=== PATIENT | male | born 1955 | race Caucasian/White ===

== ENCOUNTER 2017-05-06 02:57 | Emergency (ER) | payer MEDICARE, OTHER ==
[~2017-05-06] VITALS: Ht 175.3 cm; Wt 95.3 kg
[2017-05-06 03:12] VITALS: BP 146/90
--- NOTE | 2017-05-06 03:21 | Emergency Room Report ---
History of Present Illness General Chief Complaint: Skin Rash/Abscess Source: Patient Present Illness HPI Is a 61-year-old male with multiple medical problem. He presents with chief complaint of bedbugs infestation. It appeared that he may have lifted his car. He said his car is infested with bedbugs. He tried everything over-the- counter without success. He came in here asking for me to get rid of bedbugs in his car. Denies any other complaint. Does have some itchiness. He did show me the bedbugs in a napkin. Allergies: Coded Allergies: STRAWBERRY (Verified Allergy, Unknown, 05/06/17) Patient History Past Medical History: see triage record, old chart reviewed Past Surgical History: other Pertinent Family History: none Social History: Denies: smoking Immunizations: other Reviewed Nursing Documentation: PMH: Agreed, PSxH: Agreed Nursing Documentation-PMH Past Medical History: No Stated History Review of Systems Eye: Denies: blurred vision, eye pain ENT: Denies: ear pain, nose congestion, throat swelling Respiratory: Denies: cough, shortness of breath Cardiovascular: Denies: chest pain, palpitations Gastrointestinal: Denies: abdominal pain, diarrhea, nausea, vomiting Musculoskeletal: Denies: back pain, joint pain Skin: Denies: rash Neurological: Denies: headache, numbness Endocrine: Denies: increased thirst, increased urine Hematologic/Lymphatic: Denies: easy bruising All Other Systems: negative except mentioned in HPI Physical Exam Vital Signs Date Time Temp Pulse Resp B/P Pulse Ox O2 Delivery O2 Flow Rate FiO2 05/06/17 03:03 98.1 70 16 146/90 99 Room Air vitals normal Sp02 EP Interpretation: reviewed, normal General Appearance: well appearing, no apparent distress, alert Head: normocephalic, atraumatic Eyes: bilateral eye EOMI, bilateral eye PERRL ENT: hearing grossly normal, normal pharynx Neck: full range of motion, supple, no meningismus Respiratory: chest non-tender, lungs clear, normal breath sounds Cardiovascular #1: regular rate, rhythm, no murmur Gastrointestinal: normal bowel sounds, non tender, no mass, no organomegaly, no bruit, non-distended Musculoskeletal: back normal, gait/station normal, normal range of motion Neurologic: alert, oriented x3 Psychiatric: mood/affect normal Skin: warm/dry, other - Patient with some excoriation to his left torso Medical Decision Making Diagnostic Impression: Primary Impression: Bed bug bite Qualified Codes: W57.XXXA - Bitten or stung by nonvenomous insect and other nonvenomous arthropods, initial encounter ER Course Patient With bedbugs. He appeared comfortable. Explained to patient that he may need to get an turner in or any bedbugs specialist. Nothing I can do for the environment in his car or at home. This is not the right place to go for his complaint. Patient was not happy with this. he left without his paperwork. Last Vital Signs Date Time Temp Pulse Resp B/P Pulse Ox O2 Delivery O2 Flow Rate FiO2 05/06/17 03:12 98.1 70 16 146/90 99 Room Air Status: unchanged Disposition: HOME, SELF-CARE Condition: Stable Additional Instructions: followup your Dr. in 7 days. Return if worse. See an turner in. PHOENIX ONEILL M.D. May 06, 2017 03:21
[2017-05-06 03:25] VITALS: BP 146/90
== END 2017-05-06 03:25 | disposition home or self-care (01) ==
LOC: EMR 03:09
DX: S20.362A Insect bite (nonvenomous) of left front wall of thorax, initial encounter (principal); W57.XXXA Bitten or stung by nonvenomous insect and other nonvenomous arthropods, initial encounter; Y93.9 Activity, unspecified; Y92.9 Unspecified place or not applicable; Z91.018 Allergy to other foods
CPT/HCPCS: 99282

== ENCOUNTER 2017-05-29 09:35 | Inpatient (IN) | payer MEDICARE, OTHER ==
[~2017-05-29] VITALS: Ht 175.3 cm; Wt 92.7 kg
[2017-05-29 09:48] VITALS: BP 132/76
[2017-05-29] MEDS ORDERED: Promethazine/Codeine 5ml UD ORAL ONE (10:00)
--- NOTE | 2017-05-29 10:05 | Emergency Room Report ---
History of Present Illness General Chief Complaint: Upper Respiratory Illness Source: Patient Present Illness HPI Patient presents with cough with green phlegm. He also has chest pain. He's had pneumonia in the past and this feels like that. He had night sweats 2 nights ago. The pain is "crushing" his chest. No meds taken for this. Constant and radiating to back. TAYLOR. Has not heard himself wheezing. The patient's also on antibiotics at this time because he was having dysuria. It's the medicines once a day. He's not sure what the medicine name is. He is having urgency and dysuria. This somewhat better at this time. Is history of congestive heart failure, HIV and diabetes. No rashes, extremity pain, headache, change vision, NVD, depression. Allergies: Coded Allergies: No Known Allergies (Unverified , 05/29/17) Patient History Past Medical History: see triage record Social History: Denies: smoking Social History Narrative at home Reviewed Nursing Documentation: PMH: Agreed, PSxH: Agreed Nursing Documentation-PMH Past Medical History: No History, Except For Hx Hypertension: Yes - High Cholesterol Hx Pacemaker: Yes - Left chest, May 2016 @ [facility] Hx Diabetes: Yes Review of Systems All Other Systems: negative except mentioned in HPI Physical Exam Vital Signs Date Time Temp Pulse Resp B/P Pulse Ox O2 Delivery O2 Flow Rate FiO2 05/29/17 09:39 97.7 73 16 127/79 97 Room Air Sp02 EP Interpretation: reviewed, normal General Appearance: well appearing, no apparent distress, GCS 15 Head: normocephalic, atraumatic Eyes: bilateral eye PERRL, bilateral eye normal inspection ENT: moist mucus membranes Neck: supple Respiratory: lungs clear, normal breath sounds Cardiovascular #1: regular rate, rhythm, no edema Cardiovascular #2: 2+ radial (R) Gastrointestinal: normal inspection, normal bowel sounds, non tender, no mass, non-distended Musculoskeletal: back normal, gait/station normal, normal range of motion Neurologic: alert, oriented x3, grossly normal Psychiatric: mood/affect normal Skin: normal inspection, warm/dry Medical Decision Making Diagnostic Impression: Primary Impression: Chest pain Qualified Codes: R07.9 - Chest pain, unspecified Additional Impressions: Acute bronchitis Qualified Codes: J20.9 - Acute bronchitis, unspecified CHF (congestive heart failure) Qualified Codes: I50.9 - Heart failure, unspecified HIV (human immunodeficiency virus infection) ER Course Patient presents with cough that is productive and night sweats. Differential includes pneumonia, bronchitis, acute myocardial infarction amongst others. There are no wheezes at this time. Evaluation will be with EKG, chest x-ray, blood cultures, lactic acid. The patient will be treated initially with Phenergan with codeine. This are comorbidities we will have a low threshold for possible admission to the hospital. In addition, chest pain is of concern. EKG paced. CXR without infiltrate or CHF. WBC low. BNP minimally elevated. Concern over immune suppression (potential) and patient covered with antibiotics due to purulent sputum. Needs admission to rule out ACS. With paced EKG, might hide ischemia. Also needs admission for treatment of lung infection Possible early pneumonia). Seen by Dr. Martinez. Admit telemetry Dr. Grimm (at request of Dr. Shaikh's recorded message). Laboratory Tests Test 05/29/17 10:25 05/29/17 11:48 White Blood Count 7.4 K/UL (4.8-10.8) Red Blood Count 5.08 M/UL (4.70-6.10) Hemoglobin 16.9 G/DL (14.2-18.0) Hematocrit 48.4 % (42.0-52.0) Mean Corpuscular Volume 95 FL (80-99) Mean Corpuscular Hemoglobin 33.2 PG (27.0-31.0) H Mean Corpuscular Hemoglobin Concent 34.8 G/DL (32.0-36.0) Red Cell Distribution Width 11.6 % (11.6-14.8) Platelet Count 126 K/UL (150-450) L Mean Platelet Volume 7.7 FL (6.5-10.1) Neutrophils (%) (Auto) 62.4 % (45.0-75.0) Lymphocytes (%) (Auto) 25.4 % (20.0-45.0) Monocytes (%) (Auto) 10.3 % (1.0-10.0) H Eosinophils (%) (Auto) 1.1 % (0.0-3.0) Basophils (%) (Auto) 0.8 % (0.0-2.0) Prothrombin Time 10.7 SEC (9.30-11.50) Prothrombin Time INR 1.0 (0.9-1.1) PTT 29 SEC (23-33) Sodium Level 135 mEQ/L (135-145) Potassium Level 3.9 mEQ/L (3.4-4.9) Chloride Level 99 mEQ/L (98-107) Carbon Dioxide Level 22 mEQ/L (20-30) Anion Gap 14 (5-15) Blood Urea Nitrogen 12 mg/dL (7-23) Creatinine 1.2 mg/dL (0.7-1.2) Estimate Glomerular Filtration Rate > 60 mL/min (>60) Glucose Level 166 mg/dL (74-106) H Lactic Acid Level 1.80 mmol/L (0.66-2.22) Calcium Level 9.9 mg/dL (8.6-10.2) Total Bilirubin 0.9 mg/dL (0.0-1.2) Aspartate Amino Transferase (AST) 79 U/L (5-40) H Alanine Aminotransferase (ALT) 156 U/L (3-41) H Alkaline Phosphatase 64 U/L (40-129) Total Creatine Kinase 126 U/L (38-174) Troponin I < 0.30 ng/mL (<=0.30) Pro-B-Type Natriuretic Peptide 188 pg/mL (0-125) H Total Protein 7.2 g/dL (6.6-8.7) Albumin 4.5 g/dL (3.5-5.2) Globulin 2.7 g/dL Albumin/Globulin Ratio 1.6 (1.0-2.7) Digoxin Level 0.4 ng/mL (0.5-2.0) L Urine Color Pale yellow Urine Appearance Clear Urine pH 7 (4.5-8.0) Urine Specific [place] 1.010 (1.005-1.035) Urine Protein Negative (NEGATIVE) Urine Glucose (UA) 4+ (NEGATIVE) H Urine Ketones Negative (NEGATIVE) Urine Occult Blood Negative (NEGATIVE) Urine Nitrite Negative (NEGATIVE) Urine Bilirubin Negative (NEGATIVE) Urine Urobilinogen Normal MG/DL (0.0-1.0) Urine Leukocyte Esterase Negative (NEGATIVE) EKG Diagnostic Results Rate: normal Rhythm: other - paced ST Segments: other ASA given to the pt in ED: Yes Rhythm Strip Diag. Results EP Interpretation: yes Rhythm: other - paced, av sequential, rate 67 Chest X-Ray Diagnostic Results Chest X-Ray Diagnostic Results : Chest X-Ray Ordered: Yes # of Views/Limited/Complete: 1 View Indication: Other - both with cough EP Interpretation: Yes Interpretation: no consolidation, no effusion, no pneumothorax Impression: Other Interpreting ER Provider: Electronic signature Nahum Wells MD Last Vital Signs Date Time Temp Pulse Resp B/P Pulse Ox O2 Delivery O2 Flow Rate FiO2 05/29/17 21:00 68 131/77 05/29/17 19:44 98.6 20 96 Room Air Status: improved Disposition: ADMITTED INPATIENT Condition: Serious Nahum Wells M.D. May 29, 2017 10:05
[2017-05-29 10:49] LABS: BASOPHILS % (AUTO) 0.8 % (0.0-2.0); EOSINOPHILS % (AUTO) 1.1 % (0.0-3.0); LYMPHOCYTES % (AUTO) 25.4 % (20.0-45.0); MEAN CORPUSCULAR HEMOGLOBIN 33.2 PG (27.0-31.0); MEAN CORPUSCULAR HGB CONC 34.8 G/DL (32.0-36.0); MEAN CORPUSCULAR VOLUME 95 FL (80-99); MEAN PLATELET VOLUME 7.7 FL (6.5-10.1); MONOCYTES % (AUTO) 10.3 % (1.0-10.0); NEUTROPHILS % (AUTO) 62.4 % (45.0-75.0); PLATELET COUNT 126 K/UL (150-450); RED BLOOD COUNT 5.08 M/UL (4.70-6.10); RED CELL DISTRIBUTION WIDTH 11.6 % (11.6-14.8); WHITE BLOOD COUNT 7.4 K/UL (4.8-10.8)
[2017-05-29 10:55] LABS: PROTHROMBIN TIME 10.7 SEC (9.30-11.50)
[2017-05-29 11:01] LABS: TROPONIN I < 0.30 ng/mL (<=0.30)
[2017-05-29 11:02] LABS: ALANINE AMINOTRANSFERASE 156 U/L (3-41); ALBUMIN/GLOBULIN RATIO 1.6 (1.0-2.7); ANION GAP 14 (5-15); ASPARTATE AMINO TRANSFERASE 79 U/L (5-40); CALCIUM 9.9 mg/dL (8.6-10.2); CARBON DIOXIDE 22 mEQ/L (20-30); CHLORIDE 99 mEQ/L (98-107); CREATININE 1.2 mg/dL (0.7-1.2); GLOMERULAR FILTRATION RATE > 60 mL/min (>60); HEMOLYSIS 15; POTASSIUM 3.9 mEQ/L (3.4-4.9); SODIUM 135 mEQ/L (135-145); TOTAL PROTEIN 7.2 g/dL (6.6-8.7)
[2017-05-29] MEDS ORDERED: cefTRIAXone 1 GM in NS 55 ML IVPB ONE (11:30)
[2017-05-29] MEDS ORDERED: DIGOXIN250 MCG ORAL (11:39)
[2017-05-29] MEDS ORDERED: LOSARTAN PO (11:39)
[2017-05-29] MEDS ORDERED: CARVEDILOL PO (11:39)
[2017-05-29] MEDS ORDERED: TIVICAY50 MG ORAL (11:40)
[2017-05-29] MEDS ORDERED: EDURANT25 MG PO (11:40)
[2017-05-29] MEDS ORDERED: FISH OIL CAP1000 MG ORAL (11:40)
[2017-05-29] MEDS ORDERED: EPIVIR150 MG ORAL (11:41)
[2017-05-29 11:59] LABS: APPEARANCE,URINE CLEAR; KETONES,URINE NEGATIVE (NEGATIVE); LEUKOCYTE ESTERASE ,URINE NEGATIVE (NEGATIVE); NITRITE,URINE NEGATIVE (NEGATIVE); PH,URINE 7 (4.5-8.0); PROTEIN,URINE NEGATIVE (NEGATIVE); UROBILINOGEN,URINE NORMAL MG/DL (0.0-1.0)
--- NOTE | 2017-05-29 12:09 | Diagnostic Imaging Report ---
Indication: Cough Comparison: 03/17/10 A single view chest radiograph was obtained. Findings: Cardio mediastinal silhouette is normal. There is a pacemaker in the left side. Lungs are clear. Some small osseous structures noted in the area of the left coracoclavicular ligament likely indicative of previous injury. Impression: No acute cardiopulmonary disease
[2017-05-29 13:48] VITALS: BP 111/71
--- NOTE | 2017-05-29 15:51 | Cardiac Electrophysiology PN ---
Subjective Subjective [id number]. HTN, CHF, SJ ICD, PNA, HIV Objective Last 24 Hour Vital Signs Date Time Temp Pulse Resp B/P Pulse Ox O2 Delivery O2 Flow Rate FiO2 05/29/17 13:48 97.7 79 15 111/71 99 Room Air 05/29/17 09:48 97.6 76 14 132/76 98 Room Air 05/29/17 09:47 73 16 Room Air 05/29/17 09:39 97.7 73 16 127/79 97 Room Air Laboratory Tests Test 05/29/17 10:25 05/29/17 11:48 White Blood Count 7.4 K/UL (4.8-10.8) Red Blood Count 5.08 M/UL (4.70-6.10) Hemoglobin 16.9 G/DL (14.2-18.0) Hematocrit 48.4 % (42.0-52.0) Mean Corpuscular Volume 95 FL (80-99) Mean Corpuscular Hemoglobin 33.2 PG (27.0-31.0) H Mean Corpuscular Hemoglobin Concent 34.8 G/DL (32.0-36.0) Red Cell Distribution Width 11.6 % (11.6-14.8) Platelet Count 126 K/UL (150-450) L Mean Platelet Volume 7.7 FL (6.5-10.1) Neutrophils (%) (Auto) 62.4 % (45.0-75.0) Lymphocytes (%) (Auto) 25.4 % (20.0-45.0) Monocytes (%) (Auto) 10.3 % (1.0-10.0) H Eosinophils (%) (Auto) 1.1 % (0.0-3.0) Basophils (%) (Auto) 0.8 % (0.0-2.0) Prothrombin Time 10.7 SEC (9.30-11.50) Prothromb Time International Ratio 1.0 (0.9-1.1) Activated Partial Thromboplast Time 29 SEC (23-33) Sodium Level 135 mEQ/L (135-145) Potassium Level 3.9 mEQ/L (3.4-4.9) Chloride Level 99 mEQ/L (98-107) Carbon Dioxide Level 22 mEQ/L (20-30) Anion Gap 14 (5-15) Blood Urea Nitrogen 12 mg/dL (7-23) Creatinine 1.2 mg/dL (0.7-1.2) Estimat Glomerular Filtration Rate > 60 mL/min (>60) Glucose Level 166 mg/dL (74-106) H Lactic Acid Level 1.80 mmol/L (0.66-2.22) Calcium Level 9.9 mg/dL (8.6-10.2) Total Bilirubin 0.9 mg/dL (0.0-1.2) Aspartate Amino Transf (AST/SGOT) 79 U/L (5-40) H Alanine Aminotransferase (ALT/SGPT) 156 U/L (3-41) H Alkaline Phosphatase 64 U/L (40-129) Total Creatine Kinase 126 U/L (38-174) Troponin I < 0.30 ng/mL (<=0.30) Pro-B-Type Natriuretic Peptide 188 pg/mL (0-125) H Total Protein 7.2 g/dL (6.6-8.7) Albumin 4.5 g/dL (3.5-5.2) Globulin 2.7 g/dL Albumin/Globulin Ratio 1.6 (1.0-2.7) Digoxin Level 0.4 ng/mL (0.5-2.0) L Urine Color Pale yellow Urine Appearance Clear Urine pH 7 (4.5-8.0) Urine Specific [place] 1.010 (1.005-1.035) Urine Protein Negative (NEGATIVE) Urine Glucose (UA) 4+ (NEGATIVE) H Urine Ketones Negative (NEGATIVE) Urine Occult Blood Negative (NEGATIVE) Urine Nitrite Negative (NEGATIVE) Urine Bilirubin Negative (NEGATIVE) Urine Urobilinogen Normal MG/DL (0.0-1.0) Urine Leukocyte Esterase Negative (NEGATIVE) MORIS BARRIGA May 29, 2017 15:51
[2017-05-29 16:28] VITALS: BP 116/74
[2017-05-29 16:50] VITALS: BP 140/68
--- NOTE | 2017-05-29 19:35 | History and Physical ---
History of Present Illness General Reason for Hospitalization: Upper Respiratory Illness Present Illness HPI This is a 62-yr-old male with a PMHx of HTN, cardiomyopathy s/p pacemaker placement, PNA, HIV diagnosed 35yrs ago on meds, presented to the ED with a 2 day chest pain non radiating. Pain is the same since is started 2 days ago. Also complains of cough with green phlegm. He had night sweats 2 nights ago. The patient's also on antibiotics at this time because he was having dysuria. He's not sure what the medicine name is. He is having urgency and dysuria. This somewhat better at this time. Allergies: Coded Allergies: No Known Allergies (Unverified , 05/29/17) Medication History Scheduled Digoxin* (Digoxin*), Unknown Dose ORAL DAILY, (Reported) Dolutegravir Sodium (Tivicay), Unknown Dose ORAL DAILY, (Reported) Fish Oil (Fish Oil 1,000 mg Capsule), Unknown Dose ORAL BID, (Reported) Lamivudine* (Epivir*), Unknown Dose ORAL DAILY, (Reported) Rilpivirine Hcl (Edurant), Unknown Dose PO DAILY, (Reported) [Carvedilol], Unknown Dose PO DAILY, (Reported) [Losartan], Unknown Dose PO DAILY, (Reported) Patient History History Provided By: Patient Healthcare decision maker Resuscitation status Full Code Advanced Directive on File Past Medical/Surgical History Past Medical/Surgical History: (1) HTN (hypertension) (2) Pacemaker (3) CHF (congestive heart failure) (4) Cardiomyopathy (5) PNA (pneumonia) (6) HIV (human immunodeficiency virus infection) Social History Social History: (1) Former cigarette smoker (2) No illicit drug use (3) No history of alcohol use Review of Systems All Other Systems: negative except mentioned in HPI Physical Exam General Appearance: no apparent distress, alert Lines, tubes and drains: peripheral HEENT: normocephalic, atraumatic Neck: non-tender, normal alignment, supple Respiratory/Chest: lungs clear, normal breath sounds, no respiratory distress Cardiovascular/Chest: normal rate, pacemaker/AICD Abdomen: soft, no organomegaly Extremities: non-tender, normal inspection, no calf tenderness, normal capillary refill Skin Exam: warm/dry Neurologic: no motor/sensory deficits, alert, oriented x 3, responsive, normal mood/affect Last 24 Hour Vital Signs Date Time Temp Pulse Resp B/P Pulse Ox O2 Delivery O2 Flow Rate FiO2 05/29/17 16:50 97.7 65 20 140/68 94 Room Air 05/29/17 16:30 97.6 82 16 116/74 99 Room Air 05/29/17 16:28 97.6 82 16 116/74 99 Room Air 05/29/17 13:48 97.7 79 15 111/71 99 Room Air 05/29/17 09:48 97.6 76 14 132/76 98 Room Air 05/29/17 09:47 73 16 Room Air 05/29/17 09:39 97.7 73 16 127/79 97 Room Air Laboratory Tests Test 05/29/17 10:25 05/29/17 11:48 White Blood Count 7.4 K/UL (4.8-10.8) Red Blood Count 5.08 M/UL (4.70-6.10) Hemoglobin 16.9 G/DL (14.2-18.0) Hematocrit 48.4 % (42.0-52.0) Mean Corpuscular Volume 95 FL (80-99) Mean Corpuscular Hemoglobin 33.2 PG (27.0-31.0) H Mean Corpuscular Hemoglobin Concent 34.8 G/DL (32.0-36.0) Red Cell Distribution Width 11.6 % (11.6-14.8) Platelet Count 126 K/UL (150-450) L Mean Platelet Volume 7.7 FL (6.5-10.1) Neutrophils (%) (Auto) 62.4 % (45.0-75.0) Lymphocytes (%) (Auto) 25.4 % (20.0-45.0) Monocytes (%) (Auto) 10.3 % (1.0-10.0) H Eosinophils (%) (Auto) 1.1 % (0.0-3.0) Basophils (%) (Auto) 0.8 % (0.0-2.0) Prothrombin Time 10.7 SEC (9.30-11.50) Prothromb Time International Ratio 1.0 (0.9-1.1) Activated Partial Thromboplast Time 29 SEC (23-33) Sodium Level 135 mEQ/L (135-145) Potassium Level 3.9 mEQ/L (3.4-4.9) Chloride Level 99 mEQ/L (98-107) Carbon Dioxide Level 22 mEQ/L (20-30) Anion Gap 14 (5-15) Blood Urea Nitrogen 12 mg/dL (7-23) Creatinine 1.2 mg/dL (0.7-1.2) Estimat Glomerular Filtration Rate > 60 mL/min (>60) Glucose Level 166 mg/dL (74-106) H Lactic Acid Level 1.80 mmol/L (0.66-2.22) Calcium Level 9.9 mg/dL (8.6-10.2) Total Bilirubin 0.9 mg/dL (0.0-1.2) Aspartate Amino Transf (AST/SGOT) 79 U/L (5-40) H Alanine Aminotransferase (ALT/SGPT) 156 U/L (3-41) H Alkaline Phosphatase 64 U/L (40-129) Total Creatine Kinase 126 U/L (38-174) Troponin I < 0.30 ng/mL (<=0.30) Pro-B-Type Natriuretic Peptide 188 pg/mL (0-125) H Total Protein 7.2 g/dL (6.6-8.7) Albumin 4.5 g/dL (3.5-5.2) Globulin 2.7 g/dL Albumin/Globulin Ratio 1.6 (1.0-2.7) Digoxin Level 0.4 ng/mL (0.5-2.0) L Urine Color Pale yellow Urine Appearance Clear Urine pH 7 (4.5-8.0) Urine Specific [place] 1.010 (1.005-1.035) Urine Protein Negative (NEGATIVE) Urine Glucose (UA) 4+ (NEGATIVE) H Urine Ketones Negative (NEGATIVE) Urine Occult Blood Negative (NEGATIVE) Urine Nitrite Negative (NEGATIVE) Urine Bilirubin Negative (NEGATIVE) Urine Urobilinogen Normal MG/DL (0.0-1.0) Urine Leukocyte Esterase Negative (NEGATIVE) Height (Feet): 5 Height (Inches): 9.00 Weight (Pounds): 210 Medications Current Medications Medications (Trade) Dose Ordered Sig/Nate Route PRN Reason Start Time Stop Time Status Last Admin Dose Admin Carvedilol (Coreg) 3.125 mg EVERY 12 HOURS ORAL 05/29/17 21:00 06/28/17 20:59 Dextrose (Dextrose 50%) STAT PRN IV Hypoglycemia 05/29/17 18:00 06/28/17 17:59 Digoxin (Lanoxin) 0.25 mg DAILY ORAL 05/30/17 09:00 06/29/17 08:59 Furosemide (Lasix) 40 mg DAILY IV 05/30/17 09:00 06/29/17 08:59 Insulin Aspart (NovoLOG) BEFORE MEALS AND HS SUBQ 05/29/17 21:00 06/28/17 20:59 Lisinopril (Zestril) 10 mg DAILY ORAL 05/30/17 09:00 06/29/17 08:59 Non-Formulary Medication (Non-Formulary Med) 1 ea DAILY ORAL 05/30/17 09:00 06/29/17 08:59 UNV Non-Formulary Medication (Non-Formulary Med) 1 ea DAILY ORAL 05/30/17 09:00 06/29/17 08:59 UNV Non-Formulary Medication (Non-Formulary Med) 1 ea DAILY ORAL 05/30/17 09:00 06/29/17 08:59 UNV Assessment/Plan Problem List: (1) Acute bronchitis ICD Codes: J20.9 - Acute bronchitis, unspecified SNOMED: 95085250 (2) CHF (congestive heart failure) ICD Codes: I50.9 - Heart failure, unspecified SNOMED: 64320692 (3) Cardiomyopathy ICD Codes: I42.9 - Cardiomyopathy, unspecified SNOMED: 12504245 (4) HTN (hypertension) ICD Codes: I10 - Essential (primary) hypertension SNOMED: 19473167 (5) Pacemaker ICD Codes: Z95.0 - Presence of cardiac pacemaker SNOMED: 016782106, 082026464 (6) HIV (human immunodeficiency virus infection) ICD Codes: B20 - Human immunodeficiency virus [HIV] disease SNOMED: 42306338 Assessment/Plan Obtain ID consult Cardio consult Monitor lytes, correct Pain management Neb treatment Cough suppressants Continue retroviral therapy AM labs Domi Monzon N.P. May 29, 2017 19:35
[2017-05-29 19:44] VITALS: BP 131/77
[2017-05-29] MEDS ORDERED: Acetaminophen 500mg (ES) tab ORAL PRN (19:45)
[2017-05-29] MEDS ORDERED: NEURONTIN300 MG ORAL (20:05)
[2017-05-29] MEDS ORDERED: DRONABINOL10 MG PO (20:12)
[2017-05-29] MEDS ORDERED: TAMSULOSIN HCL0.4 MG ORAL (20:12)
[2017-05-29] MEDS ORDERED: ASPIRIN81 M3 PO (20:13)
[2017-05-29] MEDS ORDERED: PROTONIX20 MG ORAL (20:13)
[2017-05-29] MEDS ORDERED: FINASTERIDE5 MG ORAL (20:13)
[2017-05-29] MEDS ORDERED: LOSARTAN POTASS25 M1 PO (20:13)
[2017-05-29] MEDS ORDERED: GLIMEPIRIDE4 MG ORAL (20:13)
[2017-05-29] MEDS: Tamsulosin 0.4mg cap ORAL SCH ×2 (21:00→21:09)
[2017-05-29] MEDS: NovoLOG Insulin Flexpen SUBQ SCH (21:10)
--- NOTE | 2017-05-29 21:45 | Consultation ---
DATE OF CONSULTATION: 05/29/2017 CARDIOLOGY CONSULTATION REFERRING PHYSICIAN: Nick Grimm M.D. REASON FOR CONSULTATION: Congestive heart failure and defibrillator management. HISTORY OF PRESENT ILLNESS: The patient is a 62-year-old gentleman with a history of hypertension, HIV, diabetes and congestive heart failure who had undergone a [employer] defibrillator implantation generator change about a year ago by . The patient presented to the emergency room with cough and green phlegm as well as chest pain. The patient has had pneumonia in the past and it feels like that. He also had night sweats two nights ago. The patient has already been on antibiotic for dysuria, but takes it one a day, but does not know the name of the medication. The patient also had dysuria and urgency. In the emergency room, the patient's blood pressure is 127/79, pulse 72, and respirations 16. At the time of my evaluation, the patient is still in the emergency room and has not been admitted to the floor yet. PAST MEDICAL HISTORY: 1. Hypertension. 2. Congestive heart failure. 3. History of [employer] defibrillator generator change in May 2016 at [facility]. 4. Cardiomyopathy. 5. HIV. 6. Diabetes. SOCIAL HISTORY: He denies smoking or drinking alcohol. He lives at home. REVIEW OF SYSTEMS: Review of systems was thoroughly performed and was negative other than what was mentioned in the history of present illness. FAMILY HISTORY: Noncontributory. PHYSICAL EXAMINATION: VITAL SIGNS: Blood pressure is 112/70, pulse is 79, respirations 16, and he is afebrile. HEAD AND NECK: No JVD. LUNGS: Clear. CARDIOVASCULAR: Regular S1, S2 with no gallop. The defibrillator is in the subclavian. ABDOMEN: Soft. EXTREMITIES: There is 1+ pitting edema. LABORATORY AND DIAGNOSTIC DATA: His EKG showed atrially sensed and biventricular paced rhythm with right bundle-branch block morphology. Labs show white count 7.4, hemoglobin 17, hematocrit 48.4, and platelet count 126,000. Sodium 135, potassium 3.9, BUN 12, and creatinine 1.2. BNP 188. Troponin is negative. D-dimer is 0.4. INR is 1. ASSESSMENT AND PLAN: 1. Congestive heart failure. We will repeat the echocardiogram for further evaluation. In the meantime, I will resume the patient's heart failure therapy including digoxin, Coreg, and losartan. Add low-dose Lasix to the medical regimen as well. 2. Status post [employer] biventricular defibrillator generator change. We will interrogate ICD for further evaluation. 3. Hypertension. Continue current heart failure therapy. 4. Pneumonia, cough, and phlegm. Antibiotic per Dr. Grimm. 5. Human immunodeficiency virus. Thank very much, Dr. Grimm, for allowing me to participate in the care of this patient. Please do not hesitate to contact me for any questions regarding my evaluation. Andres Martinez M.D. DR: TANYA JOB#: [id number] CC:
[2017-05-29] MEDS: TIVICAY 50 MG ORAL SCH (21:59)
[2017-05-29] MEDS: EDURANT 25 MG ORAL SCH (21:59)
[2017-05-29] MEDS: LAMIVUDINE 300 MG ORAL SCH (22:39)
[2017-05-29 23:48] VITALS: BP 103/61
[2017-05-30 04:00] VITALS: BP 131/77
[2017-05-30] MEDS: Glimepiride 4mg tab ORAL SCH (06:08)
[2017-05-30] MEDS: NovoLOG Insulin Flexpen SUBQ SCH ×4 (06:10→20:24)
--- NOTE | 2017-05-30 07:41 | Consultation ---
Consult Note Consult Note DATE OF CONSULTATION: 05/30/2017 PULMONARY CONSULTATION REFERRING PHYSICIAN: Nick Grimm M.D. REASON FOR CONSULTATION: Bronchitis HISTORY OF PRESENT ILLNESS: The patient is a 62-year-old gentleman with a history of hypertension, HIV, diabetes and congestive heart failure who had undergone a [employer] defibrillator implantation generator change about a year ago. The patient presented to the emergency room with cough and green phlegm as well as chest pain. The patient has had pneumonia in the past and it feels like that. He also had night sweats two nights ago. The patient has already been on antibiotic for dysuria, but takes it one a day, but does not know the name of the medication. The patient also had dysuria and urgency. In the emergency room, the patient's blood pressure is 127/79, pulse 72, and respirations 16. PAST MEDICAL HISTORY: 1. Hypertension. 2. Congestive heart failure. 3. History of [employer] defibrillator generator change in May 2016 at [facility]. 4. Cardiomyopathy. 5. HIV. 6. Diabetes. SOCIAL HISTORY: He denies smoking or drinking alcohol. He lives at home. REVIEW OF SYSTEMS: Review of systems was thoroughly performed and was negative other than what was mentioned in the history of present illness. FAMILY HISTORY: Noncontributory. PHYSICAL EXAMINATION: VITAL SIGNS: Blood pressure is 112/70, pulse is 79, respirations 16, and he is afebrile. HEAD AND NECK: No JVD. LUNGS: Clear. CARDIOVASCULAR: Regular S1, S2 with no gallop. The defibrillator is in the subclavian. ABDOMEN: Soft. EXTREMITIES: There is 1+ pitting edema. LABORATORY AND DIAGNOSTIC DATA: His EKG showed atrially sensed and biventricular paced rhythm with right bundle-branch block morphology. Labs show white count 7.4, hemoglobin 17, hematocrit 48.4, and platelet count 126,000. Sodium 135, potassium 3.9, BUN 12, and creatinine 1.2. BNP 188. Troponin is negative. D-dimer is 0.4. INR is 1. ASSESSMENT AND PLAN: 1. Congestive heart failure. Resume the patient's heart failure therapy including digoxin, Coreg, and losartan. Add low-dose Lasix to the medical regimen as well. 2. Status post [employer] Quang biventricular defibrillator generator change. 3. Hypertension. Continue current heart failure therapy. 4. Pneumonia vs bronchitis; agree with antibiotics 5. Human immunodeficiency virus. Thank very much, Dr. Grimm, for allowing me to participate in the care of this patient. Please do not hesitate to contact me for any questions regarding my evaluation. Solomon Mckeon M.D., MD May 30, 2017 07:41
[2017-05-30 08:00] VITALS: BP 136/82
[2017-05-30 08:17] LABS: BASOPHILS % (AUTO) 0.9 % (0.0-2.0); EOSINOPHILS % (AUTO) 3.4 % (0.0-3.0); LYMPHOCYTES % (AUTO) 31.8 % (20.0-45.0); MEAN CORPUSCULAR HEMOGLOBIN 33.8 PG (27.0-31.0); MEAN CORPUSCULAR VOLUME 97 FL (80-99); MEAN PLATELET VOLUME 7.6 FL (6.5-10.1); MONOCYTES % (AUTO) 12.4 % (1.0-10.0); NEUTROPHILS % (AUTO) 51.5 % (45.0-75.0); PLATELET COUNT 124 K/UL (150-450); RED CELL DISTRIBUTION WIDTH 11.9 % (11.6-14.8)
[2017-05-30 08:23] LABS: TROPONIN I < 0.30 ng/mL (<=0.30)
[2017-05-30 08:28] LABS: CALCIUM 9.7 mg/dL (8.6-10.2); CREATININE 1.3 mg/dL (0.7-1.2); GLOMERULAR FILTRATION RATE 55.6 mL/min (>60); POTASSIUM 3.6 mEQ/L (3.4-4.9)
[2017-05-30 08:35] LABS: THYROID STIMULATING HORMONE 1.91 uIU/mL (0.300-4.500)
[2017-05-30] MEDS: Aspirin Baby 81mg ORAL SCH (08:56)
[2017-05-30] MEDS: Losartan 25mg tab ORAL SCH (08:57)
[2017-05-30] MEDS: Dronabinol 2.5mg Cap ORAL SCH ×2 (08:58→17:05)
[2017-05-30] MEDS: Lisinopril 10mg tab ORAL SCH (08:59)
--- NOTE | 2017-05-30 11:34 | Nephrology Progress Note ---
Assessment/Plan Problem List: (1) HIV (human immunodeficiency virus infection) (2) Cardiomyopathy (3) HTN (hypertension) (4) Pacemaker (5) Chest pain (6) CHF (congestive heart failure) (7) Hepatitis B (8) DM (diabetes mellitus) Plan f/u hepatitis panel. abd u/s ordered. ID consult pending. cardio following. change pain meds. d/w Dr. Grimm. Subjective Subjective getting echo now. still has some cough. states that dilaudid makes him itchy and would prefer tylenol. Objective Objective Last 24 Hour Vital Signs Date Time Temp Pulse Resp B/P Pulse Ox O2 Delivery O2 Flow Rate FiO2 05/30/17 08:59 136/82 05/30/17 08:58 60 05/30/17 08:57 136/82 05/30/17 08:56 60 136/82 05/30/17 08:00 60 05/30/17 08:00 96.8 60 18 136/82 96 Room Air 05/30/17 04:00 97.8 67 20 131/77 97 Room Air 05/30/17 04:00 61 05/30/17 00:00 66 05/29/17 23:48 98.8 67 19 103/61 95 Room Air 05/29/17 21:00 68 131/77 05/29/17 20:00 69 05/29/17 19:44 98.6 68 20 131/77 96 Room Air 05/29/17 16:50 97.7 65 20 140/68 94 Room Air 05/29/17 16:44 65 05/29/17 16:30 97.6 82 16 116/74 99 Room Air 05/29/17 16:28 97.6 82 16 116/74 99 Room Air 05/29/17 13:48 97.7 79 15 111/71 99 Room Air Intake and Output 05/29/17 05/30/17 19:00 07:00 Intake Total 515 ml 240 ml Balance 515 ml 240 ml Intake Oral 360 ml 240 ml IV Total 155 ml # Voids 1 1 Laboratory Tests 05/29/17 11:48: Urine Color Pale yellow, Urine Appearance Clear, Urine pH 7, Urine Specific [place] 1.010, Urine Protein Negative, Urine Glucose (UA) 4+H, Urine Ketones Negative, Urine Occult Blood Negative, Urine Nitrite Negative, Urine Bilirubin Negative, Urine Urobilinogen Normal, Urine Leukocyte Esterase Negative 05/30/17 07:00: White Blood Count 5.0, Red Blood Count 5.00, Hemoglobin 16.9, Hematocrit 48.3, Mean Corpuscular Volume 97, Mean Corpuscular Hemoglobin 33.8H, Mean Corpuscular Hemoglobin Concent 35.0, Red Cell Distribution Width 11.9, Platelet Count 124L, Mean Platelet Volume 7.6, Neutrophils (%) (Auto) 51.5, Lymphocytes (%) (Auto) 31.8, Monocytes (%) (Auto) 12.4H, Eosinophils (%) (Auto) 3.4H, Basophils (%) ( Auto) 0.9, Sodium Level 138, Potassium Level 3.6, Chloride Level 100, Carbon Dioxide Level 26, Anion Gap 12, Blood Urea Nitrogen 13, Creatinine 1.3H, Estimat Glomerular Filtration Rate 55.6, Glucose Level 130H, Calcium Level 9.7, Troponin I < 0.30, Pro-B-Type Natriuretic Peptide 154H, Thyroid Stimulating Hormone (TSH) 1.910, Free Thyroxine 1.26, Hepatitis A IgM Antibody [Pending], Hepatitis B Surface Antigen [Pending], Hepatitis B Core IgM Antibody [Pending], Hepatitis C Antibody [Pending] Height (Feet): 5 Height (Inches): 9.00 Weight (Pounds): 210 General Appearance: no apparent distress Cardiovascular: normal rate, regular rhythm Respiratory/Chest: decreased breath sounds Abdomen: non tender, soft Extremities: trace edema Neurologic: alert, oriented x 3 CELI CURTIS May 30, 2017 11:34
[2017-05-30] MEDS ORDERED: Norco 10mg/325mg tab ORAL PRN (11:45)
[2017-05-30] MEDS ORDERED: Morphine Sulfate 2mg/ml Inj IVP PRN (11:45)
[2017-05-30 11:48] VITALS: BP 129/84
--- NOTE | 2017-05-30 12:52 | Diagnostic Imaging Report ---
APPROVED REPORT CPT Code: 48705 Present Symptoms Lower Extremity Pain: Bilateral BILATERAL: Imaging reveals a patent deep venous system bilaterally. There is no evidence of thrombus within the femoral, popliteal or tibial segments. The greater saphenous veins are also within normal limits. Doppler indicates normal spontaneous flow within these segments.
--- NOTE | 2017-05-30 13:45 | Infectious Diseases Prog Note ---
Assessment/Plan Problems: (1) Acute bronchitis Assessment & Plan: will start levaquin empirically for 5 days (2) Chest pain Assessment & Plan: rule out ACS, monitor troponin , cardiology is following (3) HIV (human immunodeficiency virus infection) Assessment & Plan: will check viral load and CD4 counts, continue home meds , follow up with HIV provider as an out patient, will screen for syphilis, and hepatitis (4) DM (diabetes mellitus) Assessment & Plan: recommend tight glycemic control to keep blood glucose between 80-120 (5) Elevated transaminase level Assessment & Plan: rule out hepatitis, will screen for hepatitis , avoid hepatotoxic meds Subjective Allergies: Coded Allergies: No Known Allergies (Unverified , 05/29/17) Objective Vital Signs Last 24 Hour Vital Signs Date Time Temp Pulse Resp B/P Pulse Ox O2 Delivery O2 Flow Rate FiO2 05/30/17 11:48 97.7 67 20 129/84 95 Room Air 05/30/17 08:59 136/82 05/30/17 08:58 60 05/30/17 08:57 136/82 05/30/17 08:56 60 136/82 05/30/17 08:00 60 05/30/17 08:00 96.8 60 18 136/82 96 Room Air 05/30/17 04:00 97.8 67 20 131/77 97 Room Air 05/30/17 04:00 61 05/30/17 00:00 66 05/29/17 23:48 98.8 67 19 103/61 95 Room Air 05/29/17 21:00 68 131/77 05/29/17 20:00 69 05/29/17 19:44 98.6 68 20 131/77 96 Room Air 05/29/17 16:50 97.7 65 20 140/68 94 Room Air 05/29/17 16:44 65 05/29/17 16:30 97.6 82 16 116/74 99 Room Air 05/29/17 16:28 97.6 82 16 116/74 99 Room Air 05/29/17 13:48 97.7 79 15 111/71 99 Room Air Height (Feet): 5 Height (Inches): 9.00 Weight (Pounds): 210 Microbiology Date/Time Source Procedure Growth Status 05/29/17 10:25 Blood Blood Culture - Preliminary NO GROWTH AFTER 24 HOURS Resulted 05/29/17 10:10 Blood Blood Culture - Preliminary NO GROWTH AFTER 24 HOURS Resulted Laboratory Tests Test 05/30/17 07:00 White Blood Count 5.0 K/UL (4.8-10.8) Red Blood Count 5.00 M/UL (4.70-6.10) Hemoglobin 16.9 G/DL (14.2-18.0) Hematocrit 48.3 % (42.0-52.0) Mean Corpuscular Volume 97 FL (80-99) Mean Corpuscular Hemoglobin 33.8 PG (27.0-31.0) H Mean Corpuscular Hemoglobin Concent 35.0 G/DL (32.0-36.0) Red Cell Distribution Width 11.9 % (11.6-14.8) Platelet Count 124 K/UL (150-450) L Mean Platelet Volume 7.6 FL (6.5-10.1) Neutrophils (%) (Auto) 51.5 % (45.0-75.0) Lymphocytes (%) (Auto) 31.8 % (20.0-45.0) Monocytes (%) (Auto) 12.4 % (1.0-10.0) H Eosinophils (%) (Auto) 3.4 % (0.0-3.0) H Basophils (%) (Auto) 0.9 % (0.0-2.0) Sodium Level 138 mEQ/L (135-145) Potassium Level 3.6 mEQ/L (3.4-4.9) Chloride Level 100 mEQ/L (98-107) Carbon Dioxide Level 26 mEQ/L (20-30) Anion Gap 12 (5-15) Blood Urea Nitrogen 13 mg/dL (7-23) Creatinine 1.3 mg/dL (0.7-1.2) H Estimat Glomerular Filtration Rate 55.6 mL/min (>60) Glucose Level 130 mg/dL (74-106) H Calcium Level 9.7 mg/dL (8.6-10.2) Troponin I < 0.30 ng/mL (<=0.30) Pro-B-Type Natriuretic Peptide 154 pg/mL (0-125) H Thyroid Stimulating Hormone (TSH) 1.910 uIU/mL (0.300-4.500) Free Thyroxine 1.26 ng/dL (0.86-1.85) Hepatitis A IgM Antibody Pending Hepatitis B Surface Antigen Pending Hepatitis B Core IgM Antibody Pending Hepatitis C Antibody Pending Current Medications Medications (Trade) Dose Ordered Sig/Nate Route PRN Reason Start Time Stop Time Status Last Admin Dose Admin Acetaminophen (Tylenol) 650 mg Q4H PRN ORAL Mild Pain/Temp > 100.5 05/30/17 11:45 06/29/17 11:44 Acetaminophen/ Hydrocodone Bitart ([place] 10/325) 1 ea Q4H PRN ORAL Moderate Pain (Pain Scale 4-6) 05/30/17 11:45 06/06/17 11:44 Aspirin (ASA) 81 mg DAILY ORAL 05/30/17 09:00 06/29/17 08:59 05/30/17 08:56 Carvedilol (Coreg) 3.125 mg EVERY 12 HOURS ORAL 05/29/17 21:00 06/28/17 20:59 05/30/17 08:56 Dextrose (Dextrose 50%) STAT PRN IV Hypoglycemia 05/29/17 18:00 06/28/17 17:59 Digoxin (Lanoxin) 0.25 mg DAILY ORAL 05/30/17 09:00 06/29/17 08:59 05/30/17 08:58 Diphenhydramine HCl 25 mg 25 mg Q6H PRN ORAL Itching 05/30/17 12:00 06/29/17 11:59 Dronabinol (Marinol) 2.5 mg BID ORAL 05/30/17 09:00 06/29/17 08:59 05/30/17 08:58 Finasteride (Proscar) 5 mg DAILY ORAL 05/30/17 09:00 06/29/17 08:59 05/30/17 08:58 Fish Oil (Fish Oil) 1,000 mg BID ORAL 05/30/17 09:00 06/29/17 08:59 05/30/17 08:57 Furosemide (Lasix) 40 mg DAILY IV 05/30/17 09:00 06/29/17 08:59 05/30/17 08:56 Gabapentin (Neurontin) 300 mg THREE TIMES A DAY ORAL 05/30/17 09:00 06/29/17 08:59 05/30/17 12:21 Glimepiride (Amaryl) 4 mg BEFORE BREAKFAST ORAL 05/30/17 06:30 06/29/17 06:29 05/30/17 06:08 Guaifenesin/ Codeine Phosphate (Robitussin with codeine) 5 ml Q6H PRN ORAL For Cough 05/29/17 19:45 06/28/17 19:44 Insulin Aspart (NovoLOG) BEFORE MEALS AND HS SUBQ 05/29/17 21:00 06/28/17 20:59 05/30/17 12:24 Levofloxacin (Levaquin) 100 ml @ 100 mls/hr Q24H IVPB 05/30/17 14:30 06/06/17 14:29 Lisinopril (Zestril) 10 mg DAILY ORAL 05/30/17 09:00 06/29/17 08:59 05/30/17 08:59 Losartan Potassium (Cozaar) 25 mg DAILY ORAL 05/30/17 09:00 06/29/17 08:59 05/30/17 08:57 Morphine Sulfate (Morphine Sulfate) 2 mg Q4H PRN IVP Severe Pain (Pain Scale 7-10) 05/30/17 11:45 06/06/17 11:44 Pantoprazole (Protonix) 40 mg DAILY ORAL 05/30/17 09:00 06/29/17 08:59 05/30/17 08:58 Patient Own Medication (Patient's Own Med) 1 ea QHS ORAL 05/29/17 22:00 06/28/17 21:59 05/29/17 21:59 Patient Own Medication (Patient's Own Med) 1 ea QHS ORAL 05/29/17 22:00 06/28/17 21:59 05/29/17 21:59 Patient Own Medication (Patient's Own Med) 1 ea QHS ORAL 05/29/17 23:00 06/28/17 22:59 05/29/17 22:39 Tamsulosin HCl (Flomax) 0.4 mg BEDTIME ORAL 05/29/17 21:00 06/28/17 20:59 Hardik Enamorado M.D. May 30, 2017 13:45
[2017-05-30] MEDS: Levofloxacin 250mg/D5W 50ml IVPB SCH (15:07)
[2017-05-30 15:57] VITALS: BP 127/87
[2017-05-30] MEDS ORDERED: LEVOFLOXACIN 250 MG IVPB SCH (16:00)
--- NOTE | 2017-05-30 16:45 | Consultation ---
DATE OF CONSULTATION: 05/30/2017 INFECTIOUS DISEASE CONSULTATION REQUESTING PHYSICIAN: Nick Grimm M.D. REASON FOR CONSULTATION: Bronchitis, recommendation for antibiotics treatment in HIV patient. HISTORY OF PRESENT ILLNESS: The patient is a 62-year-old male with past medical history of HIV diagnosed 35 years ago, who has been on medication and controlled as per the patient report, cardiomyopathy, status post pacemaker placement, hypertension, and pneumonia, who was sent to [facility] emergency room for persistent chest pain for two days. The pain was dull, deep, ache, mainly in the substernal area, 10/10 in intensity, which prompted him to come to the emergency room. Does not radiate to the arm or to the back. His pain was associated with productive cough with greenish phlegm. He had some night sweats, but resolved. The patient has been on antibiotics because of dysuria as an outpatient, but he is not sure what medication he was taking. No urgency or dysuria at this point. No fever or chills. No shortness of breath. His chest pain seems to be improved due to previous history of HIV and since he is on medication. I was consulted by the primary provider for HIV care and management of acute bronchitis. REVIEW OF SYSTEMS: A 12-point systems reviewed were all negative apart from the one I mentioned above in my history of present illness. PAST MEDICAL HISTORY: Significant for cardiomyopathy, status post pacemaker, pneumonia, hypertension, and HIV. PAST SURGICAL HISTORY: He had a pacemaker placement. SOCIAL HISTORY: He lives at home with family. No recent drugs, tobacco, or alcohol. FAMILY HISTORY: Negative for recurrent infection or immunocompromised condition. ALLERGIES: He has no known drug allergy. MEDICATIONS: The patient is on dolutegravir, rilpivirine and lamivudine for his is HIV care. For the rest of his medications, please refer to MAR. LABORATORY DATA: Labs showed BUN of 13 and creatinine of 1.3. White count of 5000, hemoglobin of 16.9, and platelet count of 124,000. AST of 79 and ALT of 156. Urinalysis was negative for infection. Serology, hepatitis panel including A, B, and C are pending. MICROBIOLOGY: Blood culture x2 negative to date. IMAGING: Chest x-ray showed no acute cardiopulmonary disease. Venous Doppler of both legs showed patent venous system with no evidence of thrombus. PHYSICAL EXAMINATION: GENERAL: A middle-aged male, up in bed, awake, alert, and oriented x3, not in distress. VITAL SIGNS: Temperature 97.7 degrees, pulse 67, respiration 20, blood pressure 129/84, and saturation 95% on room air. HEENT: Normocephalic and atraumatic. Pupils are reactive to light. Moist oral mucosa. No thrush. NECK: Supple. No lymphadenopathy. CARDIOVASCULAR: Regular rate and rhythm. No murmur or gallop. LUNGS: He had diminished breathing sounds at the bases. No wheezing or rhonchi. Normal breathing efforts. ABDOMEN: Soft, nontender, and nondistended. Positive bowel sounds. No hepatosplenomegaly or ascites. EXTREMITIES: No edema or cyanosis. SKIN: No rash or hives. ASSESSMENT AND PLAN: 1. Acute bronchitis with productive phlegm. No evidence of acute pneumonia on chest x-ray. So, we will start Levaquin empirically for five days. 2. Chest pain, rule out acute coronary syndrome with cardiac history. Monitor troponin. Cardiology is following. May need stress test. 3. Human immunodeficiency virus. We will check his viral load and CD4 count and screen him for syphilis. Hepatitis panel already pending. The patient to continue his home medications as before and follow up with his human immunodeficiency virus provider as an outpatient. 4. Diabetes. Recommend tight glycemic control to keep blood glucose between 80 to 120. 5. Elevated transaminases, rule out hepatitis. We will screen for hepatitis at this point. Avoid hepatotoxic medications. Thank you for the consult. Infectious Disease will continue to follow. Hardik Enamorado M.D. DR: AGUSTINA JOB#: [id number] CC: KHARI
[2017-05-30 20:00] VITALS: BP 106/60
[2017-05-30] MEDS: EDURANT 25 MG ORAL SCH (20:20)
[2017-05-30] MEDS: TIVICAY 50 MG ORAL SCH (20:20)
[2017-05-30] MEDS: LAMIVUDINE 300 MG ORAL SCH (20:20)
[2017-05-30] MEDS: Tamsulosin 0.4mg cap ORAL SCH (20:20)
[2017-05-31] VITALS (7 sets, daily range): BP systolic 103–123; BP diastolic 54–68
[2017-05-31] MEDS: Glimepiride 4mg tab ORAL SCH (06:23)
[2017-05-31] MEDS: NovoLOG Insulin Flexpen SUBQ SCH ×4 (06:23→20:38)
[2017-05-31] MEDS: Aspirin Baby 81mg ORAL SCH (08:49)
[2017-05-31] MEDS: Losartan 25mg tab ORAL SCH (08:49)
[2017-05-31] MEDS: Lisinopril 10mg tab ORAL SCH (08:50)
[2017-05-31] MEDS: Dronabinol 2.5mg Cap ORAL SCH ×2 (08:51→18:37)
--- NOTE | 2017-05-31 09:33 | Diagnostic Imaging Report ---
Indication: ABN LABS Technique: Ultrasound of the abdomen. Comparison: None Findings: Liver: Liver appears increased in echogenicity diffusely. No definite focal abnormalities identified. Gallbladder: Surgically absent. Common bile duct: Normal in size. Pancreas: The visualized portion of pancreas is normal in echogenicity. There are no masses. Kidneys: The kidneys are normal in size and echogenicity. There is no hydronephrosis. Spleen: The spleen is enlarged measuring 15 cm. Aorta: The visualized portion of the aorta is normal in caliber. IVC: The demonstrated portion of the inferior vena cava is normal. Impression: Hepatic steatosis. Splenomegaly. Previous cholecystectomy.
--- NOTE | 2017-05-31 10:47 | Pulmonology Progress Note ---
Assessment/Plan Assessment/Plan ASSESSMENT AND PLAN: 1. Congestive heart failure. On digoxin, Coreg, and losartan. Added low-dose Lasix to the medical regimen as well. 2. Status post [employer] Quang biventricular defibrillator generator change. 3. Hypertension. Continue current heart failure therapy. 4. Pneumonia vs bronchitis; agree with antibiotics (Levaquin) 5. Human immunodeficiency virus. Subjective Interval Events: Better Constitutional: Reports: no symptoms HEENT: Repors: no symptoms Respiratory: Reports: no symptoms Cardiovascular: Reports: no symptoms Allergies: Coded Allergies: No Known Allergies (Unverified , 05/29/17) Objective Last 24 Hour Vital Signs Date Time Temp Pulse Resp B/P Pulse Ox O2 Delivery O2 Flow Rate FiO2 05/31/17 08:51 60 05/31/17 08:50 107/68 05/31/17 08:50 60 107/68 05/31/17 08:49 107/68 05/31/17 08:00 97.3 60 19 107/68 99 Room Air 05/31/17 04:00 96.3 60 18 103/56 94 Room Air 05/31/17 04:00 60 05/31/17 00:00 97.3 61 18 113/60 97 Room Air 05/31/17 00:00 60 05/30/17 20:33 61 106/60 05/30/17 20:00 97.0 61 18 106/60 97 Room Air 05/30/17 20:00 61 05/30/17 16:00 60 05/30/17 15:57 97.9 78 20 127/87 99 Room Air 05/30/17 12:00 60 05/30/17 11:48 97.7 67 20 129/84 95 Room Air Intake and Output 05/30/17 05/31/17 19:00 07:00 Intake Total 1268 ml 240 ml Output Total 1800 ml 1900 ml Balance -532 ml -1660 ml Intake Oral 1218 ml 240 ml IV Total 50 ml Output Urine Total 1800 ml 1900 ml # Voids 4 3 General Appearance: no acute distress HEENT: normocephalic Respiratory/Chest: chest wall non-tender Cardiovascular: normal peripheral pulses Abdomen: normal bowel sounds Extremities: no cyanosis Microbiology Date/Time Source Procedure Growth Status 05/29/17 10:25 Blood Blood Culture - Preliminary NO GROWTH AFTER 24 HOURS Resulted 05/29/17 10:10 Blood Blood Culture - Preliminary NO GROWTH AFTER 24 HOURS Resulted Laboratory Tests 05/30/17 15:55: White Blood Count [Pending], Lymphocytes [Pending], Percent CD3 Cells [Pending] , Absolute CD3 Count [Pending], Percent CD4 Cells [Pending], Absolute CD4 Count [Pending], T-Lymphocyte CD4/CD8 Ratio [Pending], Percent CD8 Cells [Pending], Absolute CD8 Count [Pending], Rapid Plasma Reagin [Pending], HIV-1 RNA (PCR) log10 Value [Pending], HIV-1 RNA Ultraquantitative (PCR) [Pending] Current Medications Medications (Trade) Dose Ordered Sig/Nate Route PRN Reason Start Time Stop Time Status Last Admin Dose Admin Acetaminophen (Tylenol) 650 mg Q4H PRN ORAL Mild Pain/Temp > 100.5 05/30/17 11:45 06/29/17 11:44 05/30/17 20:32 Acetaminophen/ Hydrocodone Bitart ([place] 10/325) 1 ea Q4H PRN ORAL Moderate Pain (Pain Scale 4-6) 05/30/17 11:45 06/06/17 11:44 Aspirin (ASA) 81 mg DAILY ORAL 05/30/17 09:00 06/29/17 08:59 05/31/17 08:49 Carvedilol (Coreg) 3.125 mg EVERY 12 HOURS ORAL 05/29/17 21:00 06/28/17 20:59 05/31/17 08:50 Dextrose (Dextrose 50%) STAT PRN IV Hypoglycemia 05/29/17 18:00 06/28/17 17:59 Digoxin (Lanoxin) 0.25 mg DAILY ORAL 05/30/17 09:00 06/29/17 08:59 05/31/17 08:51 Diphenhydramine HCl 25 mg 25 mg Q6H PRN ORAL Itching 05/30/17 12:00 06/29/17 11:59 Dronabinol (Marinol) 2.5 mg BID ORAL 05/30/17 09:00 06/29/17 08:59 05/31/17 08:51 Finasteride (Proscar) 5 mg DAILY ORAL 05/30/17 09:00 06/29/17 08:59 05/31/17 08:51 Fish Oil (Fish Oil) 1,000 mg BID ORAL 05/30/17 09:00 06/29/17 08:59 05/31/17 08:50 Furosemide (Lasix) 40 mg DAILY IV 05/30/17 09:00 06/29/17 08:59 05/31/17 08:52 Gabapentin (Neurontin) 300 mg THREE TIMES A DAY ORAL 05/30/17 09:00 06/29/17 08:59 05/31/17 08:51 Glimepiride (Amaryl) 4 mg BEFORE BREAKFAST ORAL 05/30/17 06:30 06/29/17 06:29 05/31/17 06:23 Guaifenesin/ Codeine Phosphate (Robitussin with codeine) 5 ml Q6H PRN ORAL For Cough 05/29/17 19:45 06/28/17 19:44 Insulin Aspart (NovoLOG) BEFORE MEALS AND HS SUBQ 05/29/17 21:00 06/28/17 20:59 05/31/17 06:23 Levofloxacin (Levaquin) 50 ml @ 50 mls/hr Q24H IVPB 05/30/17 16:00 06/06/17 15:59 05/30/17 15:07 Lisinopril (Zestril) 10 mg DAILY ORAL 05/30/17 09:00 06/29/17 08:59 05/31/17 08:50 Losartan Potassium (Cozaar) 25 mg DAILY ORAL 05/30/17 09:00 06/29/17 08:59 05/31/17 08:49 Morphine Sulfate (Morphine Sulfate) 2 mg Q4H PRN IVP Severe Pain (Pain Scale 7-10) 05/30/17 11:45 06/06/17 11:44 05/30/17 16:22 Pantoprazole (Protonix) 40 mg DAILY ORAL 05/30/17 09:00 06/29/17 08:59 05/31/17 08:49 Patient Own Medication (Patient's Own Med) 1 ea QHS ORAL 05/29/17 22:00 06/28/17 21:59 05/30/17 20:20 Patient Own Medication (Patient's Own Med) 1 ea QHS ORAL 05/29/17 22:00 06/28/17 21:59 05/30/17 20:20 Patient Own Medication (Patient's Own Med) 1 ea QHS ORAL 05/29/17 23:00 06/28/17 22:59 05/30/17 20:20 Tamsulosin HCl (Flomax) 0.4 mg BEDTIME ORAL 05/29/17 21:00 06/28/17 20:59 05/30/17 20:20 Solomon Bishop MD May 31, 2017 10:47
[2017-05-31] MEDS: guaiFENesin w/Codeine 5ml Liq ud ORAL PRN (11:17)
[2017-05-31] MEDS ORDERED: NS 275ml ONE (11:19)
[2017-05-31] MEDS ORDERED: Tubing IV Secondary IV ONE (11:19)
[2017-05-31] MEDS: Levofloxacin 250mg/D5W 50ml IVPB SCH (16:36)
--- NOTE | 2017-05-31 20:35 | Infectious Diseases Prog Note ---
Assessment/Plan Problems: (1) Acute bronchitis Assessment & Plan: continue levaquin empirically for 5 days (2) Chest pain Assessment & Plan: rule out ACS, monitor troponin , cardiology is following (3) HIV (human immunodeficiency virus infection) Assessment & Plan: await viral load and CD4 counts, hold HIV meds due to elevated creatinine and transaminas , follow up with HIV provider as an out patient, screening for syphilis is pending, hepatitis is negative (4) DM (diabetes mellitus) Assessment & Plan: recommend tight glycemic control to keep blood glucose between 80-120 (5) Elevated transaminase level Assessment & Plan: not due to hepatitis, suspect due to HIV meds, will hold for now and monitor LFT , avoid hepatotoxic meds Subjective Constitutional: Reports: no symptoms HEENT: Reports: no symptoms Respiratory: Reports: no symptoms Breasts: Reports: no symptoms Cardiovascular: Reports: no symptoms Genitourinary: Reports: no symptoms Neurologic: Reports: no symptoms Psychiatric: Reports: no symptoms Skin: Reports: no symptoms Endocrine: Reports: no symptoms Musculoskeletal: Reports: no symptoms Allergies: Coded Allergies: No Known Allergies (Unverified , 05/29/17) Objective Vital Signs Last 24 Hour Vital Signs Date Time Temp Pulse Resp B/P Pulse Ox O2 Delivery O2 Flow Rate FiO2 05/31/17 20:00 97.7 61 18 123/66 97 Room Air 05/31/17 16:00 60 05/31/17 16:00 98.6 60 19 118/68 Room Air 05/31/17 12:00 62 05/31/17 12:00 97.3 59 19 108/68 96 Room Air 05/31/17 08:51 60 05/31/17 08:50 107/68 05/31/17 08:50 60 107/68 05/31/17 08:49 107/68 05/31/17 08:00 60 05/31/17 08:00 97.3 60 19 107/68 99 Room Air 05/31/17 04:00 96.3 60 18 103/56 94 Room Air 05/31/17 04:00 60 05/31/17 00:00 97.3 61 18 113/60 97 Room Air 05/31/17 00:00 60 Height (Feet): 5 Height (Inches): 9.00 Weight (Pounds): 202 General Appearance: WD/WN, no acute distress HEENT: normocephalic, atraumatic, anicteric, mucous membranes moist, PERRL Respiratory/Chest: chest wall non-tender, lungs clear, normal breath sounds, no respiratory distress, no accessory muscle use Cardiovascular: normal peripheral pulses, normal rate, regular rhythm, no gallop/murmur, no JVD Abdomen: normal bowel sounds, soft, non tender, no organomegaly, non distended , no mass, no scars Extremities: no cyanosis, no clubbing Skin: no rash, no lesions Microbiology Date/Time Source Procedure Growth Status 05/29/17 10:25 Blood Blood Culture - Preliminary NO GROWTH AFTER 24 HOURS Resulted 05/29/17 10:10 Blood Blood Culture - Preliminary NO GROWTH AFTER 24 HOURS Resulted Current Medications Medications (Trade) Dose Ordered Sig/Nate Route PRN Reason Start Time Stop Time Status Last Admin Dose Admin Acetaminophen (Tylenol) 650 mg Q4H PRN ORAL Mild Pain/Temp > 100.5 05/30/17 11:45 06/29/17 11:44 05/30/17 20:32 Acetaminophen/ Hydrocodone Bitart ([place] 10/325) 1 ea Q4H PRN ORAL Moderate Pain (Pain Scale 4-6) 05/30/17 11:45 06/06/17 11:44 Aspirin (ASA) 81 mg DAILY ORAL 05/30/17 09:00 06/29/17 08:59 05/31/17 08:49 Carvedilol (Coreg) 3.125 mg EVERY 12 HOURS ORAL 05/29/17 21:00 06/28/17 20:59 05/31/17 08:50 Dextrose (Dextrose 50%) STAT PRN IV Hypoglycemia 05/29/17 18:00 06/28/17 17:59 Digoxin (Lanoxin) 0.25 mg DAILY ORAL 05/30/17 09:00 06/29/17 08:59 05/31/17 08:51 Diphenhydramine HCl 25 mg 25 mg Q6H PRN ORAL Itching 05/30/17 12:00 06/29/17 11:59 Dronabinol (Marinol) 2.5 mg BID ORAL 05/30/17 09:00 06/29/17 08:59 05/31/17 18:37 Finasteride (Proscar) 5 mg DAILY ORAL 05/30/17 09:00 06/29/17 08:59 05/31/17 08:51 Fish Oil (Fish Oil) 1,000 mg BID ORAL 05/30/17 09:00 06/29/17 08:59 05/31/17 18:37 Furosemide (Lasix) 40 mg DAILY IV 05/30/17 09:00 06/29/17 08:59 05/31/17 08:52 Gabapentin (Neurontin) 300 mg THREE TIMES A DAY ORAL 05/30/17 09:00 06/29/17 08:59 05/31/17 18:36 Glimepiride (Amaryl) 4 mg BEFORE BREAKFAST ORAL 05/30/17 06:30 06/29/17 06:29 05/31/17 06:23 Guaifenesin/ Codeine Phosphate (Robitussin with codeine) 5 ml Q6H PRN ORAL For Cough 05/29/17 19:45 06/28/17 19:44 05/31/17 11:17 Insulin Aspart (NovoLOG) BEFORE MEALS AND HS SUBQ 05/29/17 21:00 06/28/17 20:59 05/31/17 16:50 Levofloxacin (Levaquin) 50 ml @ 50 mls/hr Q24H IVPB 05/30/17 16:00 06/06/17 15:59 05/31/17 16:36 Lisinopril (Zestril) 10 mg DAILY ORAL 05/30/17 09:00 06/29/17 08:59 05/31/17 08:50 Losartan Potassium (Cozaar) 25 mg DAILY ORAL 05/30/17 09:00 06/29/17 08:59 05/31/17 08:49 Morphine Sulfate (Morphine Sulfate) 2 mg Q4H PRN IVP Severe Pain (Pain Scale 7-10) 05/30/17 11:45 06/06/17 11:44 05/30/17 16:22 Pantoprazole (Protonix) 40 mg DAILY ORAL 05/30/17 09:00 06/29/17 08:59 05/31/17 08:49 Patient Own Medication (Patient's Own Med) 1 ea QHS ORAL 05/29/17 22:00 06/28/17 21:59 Future Hold 05/30/17 20:20 Patient Own Medication (Patient's Own Med) 1 ea QHS ORAL 05/29/17 22:00 06/28/17 21:59 Future Hold 05/30/17 20:20 Patient Own Medication (Patient's Own Med) 1 ea QHS ORAL 05/29/17 23:00 06/28/17 22:59 Future Hold 05/30/17 20:20 Tamsulosin HCl (Flomax) 0.4 mg BEDTIME ORAL 05/29/17 21:00 06/28/17 20:59 05/30/17 20:20 Hardik Enamorado M.D. May 31, 2017 20:35
[2017-05-31] MEDS: Tamsulosin 0.4mg cap ORAL SCH (20:37)
--- NOTE | 2017-05-31 22:44 | Nephrology Progress Note ---
Assessment/Plan Problem List: (1) Cardiomyopathy (2) HTN (hypertension) (3) Pacemaker (4) Hepatitis B (5) DM (diabetes mellitus) (6) Elevated transaminase level (7) CHF (congestive heart failure) (8) Acute bronchitis (9) HIV (human immunodeficiency virus infection) Plan Cardio, ID, and Pulm following. Empiric abx per ID. on Levaquin empirically. Cont to monitor. D/c plan in 1-2 days. Subjective Subjective no new c/o. Objective Objective Last 24 Hour Vital Signs Date Time Temp Pulse Resp B/P Pulse Ox O2 Delivery O2 Flow Rate FiO2 05/31/17 20:37 61 123/66 05/31/17 20:00 97.7 61 18 123/66 97 Room Air 05/31/17 16:00 60 05/31/17 16:00 98.6 60 19 118/68 Room Air 05/31/17 12:00 62 05/31/17 12:00 97.3 59 19 108/68 96 Room Air 05/31/17 08:51 60 05/31/17 08:50 107/68 05/31/17 08:50 60 107/68 05/31/17 08:49 107/68 05/31/17 08:00 60 05/31/17 08:00 97.3 60 19 107/68 99 Room Air 05/31/17 04:00 96.3 60 18 103/56 94 Room Air 05/31/17 04:00 60 05/31/17 00:00 97.3 61 18 113/60 97 Room Air 05/31/17 00:00 60 Intake and Output 05/30/17 05/31/17 19:00 07:00 Intake Total 1268 ml 240 ml Output Total 1800 ml 1900 ml Balance -532 ml -1660 ml Intake Oral 1218 ml 240 ml IV Total 50 ml Output Urine Total 1800 ml 1900 ml # Voids 4 3 Height (Feet): 5 Height (Inches): 9.00 Weight (Pounds): 202 General Appearance: no apparent distress Cardiovascular: normal rate, regular rhythm Respiratory/Chest: decreased breath sounds Abdomen: non tender, soft Extremities: trace edema Neurologic: alert, oriented x 3 ROBERTO BEDOLLA May 31, 2017 22:44
[2017-06-01 04:00] VITALS: BP 112/58
[2017-06-01] MEDS: guaiFENesin w/Codeine 5ml Liq ud ORAL PRN ×2 (05:31→12:14)
[2017-06-01] MEDS: Glimepiride 4mg tab ORAL SCH (05:34)
[2017-06-01] MEDS: NovoLOG Insulin Flexpen SUBQ SCH ×2 (05:35→12:08)
[2017-06-01 07:57] VITALS: BP 144/83
[2017-06-01] MEDS: Aspirin Baby 81mg ORAL SCH (09:07)
[2017-06-01] MEDS: Lisinopril 10mg tab ORAL SCH (09:07)
[2017-06-01] MEDS: Losartan 25mg tab ORAL SCH (09:07)
[2017-06-01] MEDS: Dronabinol 2.5mg Cap ORAL SCH (09:07)
[2017-06-01 11:25] VITALS: BP 126/76
[2017-06-01 14:31] LABS: ALANINE AMINOTRANSFERASE 170 U/L (3-41); ALBUMIN/GLOBULIN RATIO 1.4 (1.0-2.7); ANION GAP 14 (5-15); ASPARTATE AMINO TRANSFERASE 94 U/L (5-40); CALCIUM 9.9 mg/dL (8.6-10.2); CARBON DIOXIDE 24 mEQ/L (20-30); CHLORIDE 96 mEQ/L (98-107); CREATININE 1.2 mg/dL (0.7-1.2); GLOMERULAR FILTRATION RATE > 60 mL/min (>60); HEMOLYSIS 10; SODIUM 134 mEQ/L (135-145); TOTAL PROTEIN 7.2 g/dL (6.6-8.7)
[2017-06-01 15:22] VITALS: BP 104/50
--- NOTE | 2017-06-01 15:25 | Infectious Diseases Prog Note ---
Assessment/Plan Problems: (1) Acute bronchitis Assessment & Plan: improving on levaquin empirically for 5 days, EOT 06/03/17 (2) Chest pain Assessment & Plan: improved, rule out ACS, monitor troponin , cardiology is following (3) HIV (human immunodeficiency virus infection) Assessment & Plan: await viral load and CD4 counts, hold HIV meds due to elevated creatinine and transaminase , may need to switch rilpivirine to a different drug in the future since it causes hepatitis , follow up with HIV provider as an out patient, screening for syphilis is pending, hepatitis is negative. D/W patient plan of care . (4) DM (diabetes mellitus) Assessment & Plan: recommend tight glycemic control to keep blood glucose between 80-120 (5) Elevated transaminase level Assessment & Plan: not due to hepatitis, suspect due to HIV meds, will hold for now and monitor LFT , avoid hepatotoxic meds Subjective Constitutional: Reports: no symptoms HEENT: Reports: no symptoms Respiratory: Reports: no symptoms Breasts: Reports: no symptoms Cardiovascular: Reports: no symptoms Gastrointestinal/Abdominal: Reports: no symptoms Genitourinary: Reports: no symptoms Neurologic: Reports: no symptoms Psychiatric: Reports: no symptoms Skin: Reports: no symptoms Endocrine: Reports: no symptoms Hematologic: Reports: no symptoms Musculoskeletal: Reports: no symptoms Allergies: Coded Allergies: No Known Allergies (Unverified , 05/29/17) Objective Vital Signs Last 24 Hour Vital Signs Date Time Temp Pulse Resp B/P Pulse Ox O2 Delivery O2 Flow Rate FiO2 06/01/17 11:25 97.2 64 20 126/76 99 Room Air 06/01/17 09:08 60 144/83 06/01/17 09:07 144/83 06/01/17 09:07 144/83 06/01/17 09:07 60 06/01/17 07:57 96.4 60 20 144/83 99 Room Air 06/01/17 04:00 63 06/01/17 04:00 97.8 60 18 112/58 98 Room Air 06/01/17 00:00 61 05/31/17 23:53 97.9 63 18 108/54 98 Room Air 05/31/17 20:37 61 123/66 05/31/17 20:00 97.7 61 18 123/66 97 Room Air 05/31/17 20:00 60 05/31/17 16:00 60 05/31/17 16:00 98.6 60 19 118/68 Room Air Height (Feet): 5 Height (Inches): 9.00 Weight (Pounds): 204 General Appearance: WD/WN, no acute distress HEENT: normocephalic, atraumatic, anicteric, mucous membranes moist Respiratory/Chest: chest wall non-tender, lungs clear, normal breath sounds, no respiratory distress, no accessory muscle use Cardiovascular: normal peripheral pulses, normal rate, regular rhythm, no gallop/murmur, no JVD Abdomen: normal bowel sounds, soft, non tender, no organomegaly, non distended , no mass Extremities: no cyanosis, no clubbing Skin: no rash, no lesions Neurologic/Psychiatric: alert, oriented x 3 Musculoskeletal: normal muscle bulk, no effusion Laboratory Tests Test 06/01/17 14:00 Sodium Level 134 mEQ/L (135-145) L Potassium Level 4.0 mEQ/L (3.4-4.9) Chloride Level 96 mEQ/L (98-107) L Carbon Dioxide Level 24 mEQ/L (20-30) Anion Gap 14 (5-15) Blood Urea Nitrogen 18 mg/dL (7-23) Creatinine 1.2 mg/dL (0.7-1.2) Estimat Glomerular Filtration Rate > 60 mL/min (>60) Glucose Level 205 mg/dL (74-106) H Calcium Level 9.9 mg/dL (8.6-10.2) Total Bilirubin 0.5 mg/dL (0.0-1.2) Aspartate Amino Transf (AST/SGOT) 94 U/L (5-40) H Alanine Aminotransferase (ALT/SGPT) 170 U/L (3-41) H Alkaline Phosphatase 82 U/L (40-129) Total Protein 7.2 g/dL (6.6-8.7) Albumin 4.3 g/dL (3.5-5.2) Globulin 2.9 g/dL Albumin/Globulin Ratio 1.4 (1.0-2.7) Current Medications Medications (Trade) Dose Ordered Sig/Nate Route PRN Reason Start Time Stop Time Status Last Admin Dose Admin Acetaminophen (Tylenol) 650 mg Q4H PRN ORAL Mild Pain/Temp > 100.5 05/30/17 11:45 06/29/17 11:44 7/22/17 20:32 Acetaminophen/ Hydrocodone Bitart ([place] 10/325) 1 ea Q4H PRN ORAL Moderate Pain (Pain Scale 4-6) 05/30/17 11:45 06/06/17 11:44 Aspirin (ASA) 81 mg DAILY ORAL 05/30/17 09:00 06/29/17 08:59 06/01/17 09:07 Carvedilol (Coreg) 3.125 mg EVERY 12 HOURS ORAL 05/29/17 21:00 06/28/17 20:59 06/01/17 09:08 Dextrose (Dextrose 50%) STAT PRN IV Hypoglycemia 05/29/17 18:00 06/28/17 17:59 Digoxin (Lanoxin) 0.25 mg DAILY ORAL 05/30/17 09:00 06/29/17 08:59 06/01/17 09:07 Diphenhydramine HCl 25 mg 25 mg Q6H PRN ORAL Itching 05/30/17 12:00 06/29/17 11:59 Dronabinol (Marinol) 2.5 mg BID ORAL 05/30/17 09:00 06/29/17 08:59 06/01/17 09:07 Finasteride (Proscar) 5 mg DAILY ORAL 05/30/17 09:00 06/29/17 08:59 06/01/17 09:07 Fish Oil (Fish Oil) 1,000 mg BID ORAL 05/30/17 09:00 06/29/17 08:59 06/01/17 09:07 Furosemide (Lasix) 40 mg DAILY IV 05/30/17 09:00 06/29/17 08:59 06/01/17 09:06 Gabapentin (Neurontin) 300 mg THREE TIMES A DAY ORAL 05/30/17 09:00 06/29/17 08:59 06/01/17 12:06 Glimepiride (Amaryl) 4 mg BEFORE BREAKFAST ORAL 05/30/17 06:30 06/29/17 06:29 06/01/17 05:34 Guaifenesin/ Codeine Phosphate (Robitussin with codeine) 5 ml Q6H PRN ORAL For Cough 05/29/17 19:45 06/28/17 19:44 06/01/17 12:14 Insulin Aspart (NovoLOG) BEFORE MEALS AND HS SUBQ 7/21/17 21:00 06/28/17 20:59 06/01/17 12:08 Levofloxacin (Levaquin) 50 ml @ 50 mls/hr Q24H IVPB 05/30/17 16:00 06/06/17 15:59 05/31/17 16:36 Lisinopril (Zestril) 10 mg DAILY ORAL 05/30/17 09:00 06/29/17 08:59 06/01/17 09:07 Losartan Potassium (Cozaar) 25 mg DAILY ORAL 05/30/17 09:00 06/29/17 08:59 06/01/17 09:07 Morphine Sulfate (Morphine Sulfate) 2 mg Q4H PRN IVP Severe Pain (Pain Scale 7-10) 05/30/17 11:45 06/06/17 11:44 05/30/17 16:22 Pantoprazole (Protonix) 40 mg DAILY ORAL 05/30/17 09:00 06/29/17 08:59 06/01/17 09:06 Patient Own Medication (Patient's Own Med) 1 ea QHS ORAL 05/29/17 22:00 06/28/17 21:59 Future Hold 05/30/17 20:20 Patient Own Medication (Patient's Own Med) 1 ea QHS ORAL 05/29/17 22:00 06/28/17 21:59 Future Hold 05/30/17 20:20 Patient Own Medication (Patient's Own Med) 1 ea QHS ORAL 05/29/17 23:00 06/28/17 22:59 Future Hold 05/30/17 20:20 Tamsulosin HCl (Flomax) 0.4 mg BEDTIME ORAL 05/29/17 21:00 06/28/17 20:59 05/31/17 20:37 Hardik Enamorado M.D. Jun 01, 2017 15:25
--- NOTE | 2017-06-01 15:42 | Cardiac Electrophysiology PN ---
Assessment/Plan Assessment/Plan 1. Congestive heart failure with EF 30-35%. Continue digoxin, Coreg, losartan and Lasix. DC Lisinopril 2. Status post [place] biventricular defibrillator generator change. Interrogation showed Nl fx. 3. Hypertension. Continue current regimen 4. Pneumonia, cough, and phlegm. Antibiotic per Dr. Grimm. 5. Human immunodeficiency virus. Subjective Subjective Feeling better. BIVICD was interrogated and showed Nl Fx. Objective Last 24 Hour Vital Signs Date Time Temp Pulse Resp B/P Pulse Ox O2 Delivery O2 Flow Rate FiO2 06/01/17 15:22 97.7 60 20 104/50 94 Room Air 06/01/17 11:25 97.2 64 20 126/76 99 Room Air 06/01/17 09:08 60 144/83 06/01/17 09:07 144/83 06/01/17 09:07 144/83 06/01/17 09:07 60 06/01/17 07:57 96.4 60 20 144/83 99 Room Air 06/01/17 04:00 63 06/01/17 04:00 97.8 60 18 112/58 98 Room Air 06/01/17 00:00 61 05/31/17 23:53 97.9 63 18 108/54 98 Room Air 05/31/17 20:37 61 123/66 05/31/17 20:00 97.7 61 18 123/66 97 Room Air 05/31/17 20:00 60 05/31/17 16:00 60 05/31/17 16:00 98.6 60 19 118/68 Room Air Intake and Output 05/31/17 06/01/17 19:00 07:00 Intake Total 50 ml 360 ml Balance 50 ml 360 ml Intake Oral 360 ml IV Total 50 ml # Voids 3 2 Laboratory Tests Test 06/01/17 14:00 Sodium Level 134 mEQ/L (135-145) L Potassium Level 4.0 mEQ/L (3.4-4.9) Chloride Level 96 mEQ/L (98-107) L Carbon Dioxide Level 24 mEQ/L (20-30) Anion Gap 14 (5-15) Blood Urea Nitrogen 18 mg/dL (7-23) Creatinine 1.2 mg/dL (0.7-1.2) Estimat Glomerular Filtration Rate > 60 mL/min (>60) Glucose Level 205 mg/dL (74-106) H Calcium Level 9.9 mg/dL (8.6-10.2) Total Bilirubin 0.5 mg/dL (0.0-1.2) Aspartate Amino Transf (AST/SGOT) 94 U/L (5-40) H Alanine Aminotransferase (ALT/SGPT) 170 U/L (3-41) H Alkaline Phosphatase 82 U/L (40-129) Total Protein 7.2 g/dL (6.6-8.7) Albumin 4.3 g/dL (3.5-5.2) Globulin 2.9 g/dL Albumin/Globulin Ratio 1.4 (1.0-2.7) Objective HEAD AND NECK: No JVD. LUNGS: Clear. CARDIOVASCULAR: Regular S1, S2 with no gallop. The defibrillator is in the subclavian. ABDOMEN: Soft. EXTREMITIES: There is 1+ pitting edema. MORIS BARRIGA Jun 01, 2017 15:42
--- NOTE | 2017-06-01 19:10 | Nephrology Progress Note ---
Assessment/Plan Assessment 1. acute bronchitis 2. HIV 3.DM 4. HTN Plan PLAN to continue levaquin 500 mg po daily monitoring respiratory status d/c planing Subjective Constitutional: Reports: no symptoms HEENT: Reports: no symptoms Genitourinary: Reports: no symptoms Neurologic/Psychiatric: Reports: no symptoms Subjective alert and awake c/o cough patient was seen today at am spoke with dr hendricks and dr reid Objective Objective Last 24 Hour Vital Signs Date Time Temp Pulse Resp B/P Pulse Ox O2 Delivery O2 Flow Rate FiO2 06/01/17 15:22 97.7 60 20 104/50 94 Room Air 06/01/17 11:25 97.2 64 20 126/76 99 Room Air 06/01/17 09:08 60 144/83 06/01/17 09:07 144/83 06/01/17 09:07 144/83 06/01/17 09:07 60 06/01/17 07:57 96.4 60 20 144/83 99 Room Air 06/01/17 04:00 63 06/01/17 04:00 97.8 60 18 112/58 98 Room Air 06/01/17 00:00 61 05/31/17 23:53 97.9 63 18 108/54 98 Room Air 05/31/17 20:37 61 123/66 05/31/17 20:00 97.7 61 18 123/66 97 Room Air 05/31/17 20:00 60 Intake and Output 05/31/17 06/01/17 19:00 07:00 Intake Total 50 ml 360 ml Balance 50 ml 360 ml Intake Oral 360 ml IV Total 50 ml # Voids 3 2 Laboratory Tests 06/01/17 14:00: Sodium Level 134L, Potassium Level 4.0, Chloride Level 96L, Carbon Dioxide Level 24, Anion Gap 14, Blood Urea Nitrogen 18, Creatinine 1.2, Estimat Glomerular Filtration Rate > 60, Glucose Level 205H, Calcium Level 9.9, Total Bilirubin 0.5, Aspartate Amino Transf (AST/SGOT) 94H, Alanine Aminotransferase ( ALT/SGPT) 170H, Alkaline Phosphatase 82, Total Protein 7.2, Albumin 4.3, Globulin 2.9, Albumin/Globulin Ratio 1.4 Height (Feet): 5 Height (Inches): 9.00 Weight (Pounds): 204 Objective General Appearance: no acute distress HEENT: normocephalic Respiratory/Chest: chest wall non-tender Cardiovascular: normal peripheral pulses Abdomen: normal bowel sounds Extremities: no cyanosis ARIANNE VO Jun 01, 2017 19:10
--- NOTE | 2017-06-02 10:25 | Discharge Summary ---
Discharge Summary Hospital Course Date of Admission May 29, 2017 at 11:33 Date of Discharge Jun 01, 2017 at 18:11 Admitting Diagnosis chest pain/bronchitis HPI Waqar Fraire is a 62 year old male who was admitted on May 29, 2017 at 11:33 for Chest Pain,Bronchitis Hospital Course dc summary #[id number] Discharge Medications Continued Medications: Aspirin (Aspirin) 81 Mg Tab.chew 81 MG PO DAILY, TAB Digoxin* (Digoxin*) 250 Mcg Tablet Unknown Dose ORAL DAILY, TAB Dolutegravir Sodium (Tivicay) 50 Mg Tablet Unknown Dose ORAL DAILY, TAB Dronabinol (Dronabinol) 10 Mg Capsule 10 MG PO BID, CAP Finasteride (Finasteride) 5 Mg Tablet 5 MG ORAL DAILY, #30 TAB 0 Refills Fish Oil (Fish Oil 1,000 mg Capsule) 1 Each Capsule Unknown Dose ORAL BID, CAP Gabapentin (Neurontin) 300 Mg Capsule 300 MG ORAL THREE TIMES A DAY, #15 CAP 0 Refills Glimepiride* (Glimepiride*) 4 Mg Tablet 4 MG ORAL BEFORE BREAKFAST, TAB Lamivudine* (Epivir*) 150 Mg Tablet Unknown Dose ORAL DAILY, #60 TAB 0 Refills Losartan Potassium (Losartan Potassium) 25 Mg Tablet 25 MG PO DAILY, TAB Pantoprazole Sodium (Protonix) 20 Mg Tablet.dr 40 MG ORAL DAILY, TAB Rilpivirine Hcl ([place]) 25 Mg Tablet Unknown Dose PO DAILY, TAB Tamsulosin Hcl (Tamsulosin Hcl*) 0.4 Mg Cap.er.24h 0.4 MG ORAL BEDTIME, CAP [Carvedilol] () Unknown Dose PO DAILY [Losartan] () Unknown Dose PO DAILY Discharge Condition Upon Discharge: stable Discharge Disposition Patient was discharged to Home () Discharge Diagnoses: Discharge Instructions Discharge Instructions Special Instructions I have been assigned to complete a D/C Summary on this account. I was not involved in the patient management Grace Shaver NP ([place]) Jun 02, 2017 10:25
[2017-06-02 10:40] LABS: CD3 ABSOLUTE 1917 /uL (622-2402); CD4 ABSOLUTE 592 /uL (359-1519); CD8 ABSOLUTE 1310 /uL (109-897); LYMPHOCYTES ABSOLUTE 2.1 x10E3/uL (0.7-3.1); LYMPHS 42 % (.)
--- NOTE | 2017-06-02 16:32 | Discharge Summary 2 SIG ---
DATE OF ADMISSION: 05/29/2017 DATE OF DISCHARGE: 06/01/2017 CONSULTANTS: 1. Andrse Martinez M.D., Risk Control Specialist. 2. Solomon Bishop M.D., Insole Reinforcer. 3. Hardik Enamorado M.D., ID specialist. BRIEF HOSPITAL COURSE: 62-year-old male with history of diabetes, pacemaker, CHF, HIV, and hypertension, presented with complaint of cough with green phlegm as well as the chest pain. The patient was reported night sweats for two days. The patient recently had pneumonia. He denied wheezing. He reported dyspnea on exertion. ProBNP was minimally elevated. Chest x-ray revealed no acute cardiopulmonary disease. EKG revealed pacing rhythm. The patient was admitted for acute bronchitis and chest pain, possible CHF and HIV status. Troponin was negative. Upon admission, Cardiology, ID , and Pulmonary consults were requested. Supplemental oxygen and pulmonary toilet provided as needed. Sputum culture was not collected. The patient did not provide a sample. The patient was on empiric antibiotics. Antitussive provided as needed. Pulse oximetry stable on room air prior to discharge. Risk Control Specialist closely followed. An echocardiogram revealed ejection fraction of 30% to 35%, right ventricular systolic pressure of 25, evidence of moderate aortic regurgitation, moderate tricuspid regurgitation. The patient was on medical management for congestive heart failure including digoxin, beta-lorne, and ARB. JEROME was discontinued secondary to elevated creatinine. Digoxin level was therapeutic. Low-dose Lasix added to existing regimen. Blood pressure was managed with beta-lorne, ARB, and low-dose of Lasix, and was stable. Blood culture were preliminary negative. The patient noted to have transaminitis. Per ID recommendations, anti-retroviral therapy was on hold secondary to elevated creatinine and transaminitis. ID recommended adjustment of anti-retroviral therapy per outpatient HIV provider, that the patient follows. Hepatitis panel was negative. Abdominal ultrasound revealed hepatic steatosis. No other acute findings. Blood sugar was managed with sliding scale of insulin. Troponin x2 was negative. EKG with a pacing rhythm. The patient was ruled out for acute IL. Cardiology closely followed. The patient status post [place] biventricular defibrillation placement. Interrogation showed normal functioning. The patient was cleared for discharge by all consultants. DISCHARGE DIAGNOSES: 1. Acute bronchitis 2. Chest pain, likely secondary to acute bronchitis. 2. Systolic congestive heart failure. 3. Possible pneumonia. 4. Hypertension. 5. Status post [place] biventricular defibrillator generator change. 6. Human immunodeficiency virus status. 7. Diabetes mellitus. 8. Transaminitis. DISCHARGE MEDICATIONS: See medication reconciliation list. DISCHARGE INSTRUCTIONS: The patient was discharged home. FOLLOWUP: Followup with the primary medical doctor and HIV provider for possible change of anti-retroviral therapy if LFT remained elevated. Nick Grimm M.D. I have been assigned to dictate discharge summary on this account and I was not involved in the patient's management. Grace MontemayorKings County Hospital Centeryg N.PJustyna DR: QUINN JOB#: [id number] CC: KHARI
--- NOTE | 2017-06-02 18:17 | Cardiology Report ---
APPROVED REPORT EKG Measurement Heart [id number] a sensed v paced
== END 2017-06-01 18:11 | disposition home or self-care (01) | DRG 202 ==
LOC: EMR 10:03 → 2E 11:33 → EDBEDREQ 13:01
DX: J20.9 Acute bronchitis, unspecified (principal); J18.9 Pneumonia, unspecified organism; B20 Human immunodeficiency virus [HIV] disease; I42.9 Cardiomyopathy, unspecified; I50.20 Unspecified systolic (congestive) heart failure; B19.10 Unspecified viral hepatitis B without hepatic coma; I10 Essential (primary) hypertension; Z95.810 Presence of automatic (implantable) cardiac defibrillator; E11.9 Type 2 diabetes mellitus without complications
CPT/HCPCS: 36415; 71010; 76700; 80048; 80053; 80162; 81003; 82550; 82962; 83605; 83880; 84439; 84443; 84484; 85025; 85610; 85730; 86360; 86592; 86705; 86709; 86803; 87040; 87340; 87536; 93005; 93306; 93970; J1815

== ENCOUNTER 2017-06-27 12:51 | Emergency (ER) | payer MEDICARE, OTHER ==
[~2017-06-27] VITALS: Ht 175.3 cm; Wt 95.3 kg
[~2017-06-27 12:51] MED LIST: ASPIRIN81 M3 PO; CARVEDILOL PO; DIGOXIN250 MCG ORAL; DRONABINOL10 MG PO; EDURANT25 MG PO; EPIVIR150 MG ORAL; FINASTERIDE5 MG ORAL; FISH OIL CAP1000 MG ORAL; GLIMEPIRIDE4 MG ORAL; LOSARTAN PO; LOSARTAN POTASS25 M1 PO; NEURONTIN300 MG ORAL; PROTONIX20 MG ORAL; TAMSULOSIN HCL0.4 MG ORAL; TIVICAY50 MG ORAL
[2017-06-27 14:03] LABS: EOSINOPHILS % (AUTO) 3.2 % (0.0-3.0); LYMPHOCYTES % (AUTO) 40.1 % (20.0-45.0); MEAN CORPUSCULAR HEMOGLOBIN 32.9 PG (27.0-31.0); MEAN CORPUSCULAR HGB CONC 34.6 G/DL (32.0-36.0); MEAN CORPUSCULAR VOLUME 95 FL (80-99); MEAN PLATELET VOLUME 6.9 FL (6.5-10.1); MONOCYTES % (AUTO) 10.3 % (1.0-10.0); NEUTROPHILS % (AUTO) 45.3 % (45.0-75.0); PLATELET COUNT 117 K/UL (150-450); RED BLOOD COUNT 5.03 M/UL (4.70-6.10); RED CELL DISTRIBUTION WIDTH 11.3 % (11.6-14.8); WHITE BLOOD COUNT 4.4 K/UL (4.8-10.8)
[2017-06-27 14:14] LABS: KETONES,URINE NEGATIVE (NEGATIVE); LEUKOCYTE ESTERASE ,URINE NEGATIVE (NEGATIVE); NITRITE,URINE NEGATIVE (NEGATIVE); PH,URINE 6.5 (4.5-8.0); PROTEIN,URINE NEGATIVE (NEGATIVE); UROBILINOGEN,URINE NORMAL MG/DL (0.0-1.0)
[2017-06-27 14:17] LABS: APPEARANCE,URINE CLEAR
[2017-06-27 14:27] LABS: PROTHROMBIN TIME 10.7 SEC (9.30-11.50)
[2017-06-27 14:36] LABS: ALANINE AMINOTRANSFERASE 126 U/L (3-41); ALBUMIN/GLOBULIN RATIO 1.8 (1.0-2.7); ANION GAP 15 (5-15); ASPARTATE AMINO TRANSFERASE 70 U/L (5-40); CARBON DIOXIDE 23 mEQ/L (20-30); CHLORIDE 93 mEQ/L (98-107); CREATININE 1.2 mg/dL (0.7-1.2); GLOMERULAR FILTRATION RATE > 60 mL/min (>60); HEMOLYSIS 13; LIPASE 56 U/L (< 60); SODIUM 131 mEQ/L (135-145); TOTAL PROTEIN 6.8 g/dL (6.6-8.7)
[2017-06-27] MEDS ORDERED: MIRALAX119 GM PO (16:34)
[2017-06-27 17:45] VITALS: BP 138/82
[2017-06-27 17:46] VITALS: BP 138/82
--- NOTE | 2017-06-27 21:27 | Emergency Room Report ---
History of Present Illness General Chief Complaint: General Complaint Source: Patient Present Illness [facility] The patient is a 62-year-old male presenting for rectal bleeding. He states that he noticed bright red blood in his stool this morning. Blood was primarily in the water and on toilet paper. He denies any pain. He states that he was not straining. He denies other symptoms including nausea, vomiting , fever, chills, diarrhea, abdominal pain, fatigue. The patient missed a history of hypertension, diabetes, HIV, and prostate cancer Allergies: Coded Allergies: No Known Allergies (Unverified , 05/29/17) Patient History Past Medical History: see triage record Pertinent Family History: none Reviewed Nursing Documentation: PMH: Agreed, PSxH: Agreed Nursing Documentation-PMH Hx Cardiac Problems: Yes - CHF, HIV+ Hx Hypertension: Yes - High Cholesterol Hx Pacemaker: Yes - Left chest, May [address] [facility] Hx Diabetes: Yes Hx Cancer: No Hx Gastrointestinal Problems: Yes Hx Neurological Problems: No Review of Systems All Other Systems: negative except mentioned in HPI Physical Exam Vital Signs Date Time Temp Pulse Resp B/P Pulse Ox O2 Delivery O2 Flow Rate FiO2 06/27/17 12:59 97.7 61 16 143/85 97 Room Air Sp02 EP Interpretation: reviewed, normal General Appearance: no apparent distress, alert, GCS 15, non-toxic Head: normocephalic, atraumatic Eyes: bilateral eye PERRL, bilateral eye normal inspection ENT: hearing grossly normal, normal pharynx, no angioedema, normal voice Respiratory: chest non-tender, lungs clear, normal breath sounds, speaking full sentences Cardiovascular #1: regular rate, rhythm, no edema Rectal: normal rectal tone, hemorrhoids - internal Genitourinary: normal inspection, no CVA tenderness Musculoskeletal: back normal, gait/station normal, normal range of motion, non- tender Neurologic: alert, oriented x3, responsive, motor strength/tone normal, sensory intact, speech normal Psychiatric: judgement/insight normal, memory normal, mood/affect normal, no suicidal/homicidal ideation Skin: normal color, no rash, warm/dry, well hydrated Medical Decision Making PA Attestation Dr. Orourke is my supervising physician. Patient management was discussed with my supervising physician Diagnostic Impression: Primary Impression: Constipation Qualified Codes: K59.00 - Constipation, unspecified Additional Impression: Internal hemorrhoid ER Course The patient is a 62-year-old male presenting for rectal bleeding. Differential diagnoses considered but not limited to: Internal/external hemorrhoids, proctitis, diverticulitis, among others Physical exam: No apparent distress Abdomen is soft and nontender Rectal exam reveals normal tone. No external hemorrhoids. Multiple internal hemorrhoids palpated. Nontender Blood work and urinalysis are unremarkable except for hyperglycemia. Pt given insulin SQ. CT scan reveals findings consistent with constipation. Otherwise no acute findings. He'll be discharged home with a prescription for MiraLAX and needs to follow up with his primary doctor. ER precautions are given Laboratory Tests Test 06/27/17 13:35 White Blood Count 4.4 K/UL (4.8-10.8) L Red Blood Count 5.03 M/UL (4.70-6.10) Hemoglobin 16.5 G/DL (14.2-18.0) Hematocrit 47.9 % (42.0-52.0) Mean Corpuscular Volume 95 FL (80-99) Mean Corpuscular Hemoglobin 32.9 PG (27.0-31.0) H Mean Corpuscular Hemoglobin Concent 34.6 G/DL (32.0-36.0) Red Cell Distribution Width 11.3 % (11.6-14.8) L Platelet Count 117 K/UL (150-450) L Mean Platelet Volume 6.9 FL (6.5-10.1) Neutrophils (%) (Auto) 45.3 % (45.0-75.0) Lymphocytes (%) (Auto) 40.1 % (20.0-45.0) Monocytes (%) (Auto) 10.3 % (1.0-10.0) H Eosinophils (%) (Auto) 3.2 % (0.0-3.0) H Basophils (%) (Auto) 1.0 % (0.0-2.0) Prothrombin Time 10.7 SEC (9.30-11.50) Prothrombin Time INR 1.0 (0.9-1.1) PTT 28 SEC (23-33) Urine Color Pale yellow Urine Appearance Clear Urine pH 6.5 (4.5-8.0) Urine Specific [place] 1.010 (1.005-1.035) Urine Protein Negative (NEGATIVE) Urine Glucose (UA) 4+ (NEGATIVE) H Urine Ketones Negative (NEGATIVE) Urine Occult Blood Negative (NEGATIVE) Urine Nitrite Negative (NEGATIVE) Urine Bilirubin Negative (NEGATIVE) Urine Urobilinogen Normal MG/DL (0.0-1.0) Urine Leukocyte Esterase Negative (NEGATIVE) Sodium Level 131 mEQ/L (135-145) L Potassium Level 4.0 mEQ/L (3.4-4.9) Chloride Level 93 mEQ/L (98-107) L Carbon Dioxide Level 23 mEQ/L (20-30) Anion Gap 15 (5-15) Blood Urea Nitrogen 14 mg/dL (7-23) Creatinine 1.2 mg/dL (0.7-1.2) Estimate Glomerular Filtration Rate > 60 mL/min (>60) Glucose Level 438 mg/dL (74-106) H Calcium Level 10.0 mg/dL (8.6-10.2) Total Bilirubin 0.4 mg/dL (0.0-1.2) Aspartate Amino Transferase (AST) 70 U/L (5-40) H Alanine Aminotransferase (ALT) 126 U/L (3-41) H Alkaline Phosphatase 95 U/L (40-129) Total Protein 6.8 g/dL (6.6-8.7) Albumin 4.4 g/dL (3.5-5.2) Globulin 2.4 g/dL Albumin/Globulin Ratio 1.8 (1.0-2.7) Lipase 56 U/L (< 60) Lab Results Impression hyperglycemia, otherwise unremarkable CT/MRI/US Diagnostic Results CT/MRI/US Diagnostic Results : Imaging Test Ordered: CT abd/pelvis Impression Consistent with constipation. Otherwise no acute findings. Last Vital Signs Date Time Temp Pulse Resp B/P Pulse Ox O2 Delivery O2 Flow Rate FiO2 06/27/17 17:46 97.7 64 13 138/82 98 Room Air Status: improved Disposition: HOME, SELF-CARE Condition: Improved Scripts Polyethylene Glycol 3350 (MIRALAX) 119 Gm Powder 17 GM PO DAILY, #119 GM Prov: CLINTON WEBSTER 06/27/17 Patient Instructions: Constipation, Adult, Hemorrhoids Additional Instructions: I discussed my findings with the patient. All questions and concerns have been answered. Treatment and medication compliance have been addressed. I advised the patient that they need to follow up with PMD in 3-5 days. Return to ED if symptoms worsen, new symptoms arise, or if needed for any reason. Patient verbalized understanding of discharge instructions. CLINTON WEBSTER Jun 27, 2017 21:27
--- NOTE | 2017-06-29 08:18 | Diagnostic Imaging Report ---
Indication: Abdominal pain Technique: CT of the abdomen and pelvis utilizing automated exposure control with intravenous contrast. Venous scanning performed. CT dose: Total DLP 962 mGycm; CTDI vol 18.6 mGy Comparison: None Findings: Two tiny 2 mm nodules are seen in the right lower lobe series 5 image 7. There is mild wall thickening versus underdistention of the distal esophagus. Pacemaker leads are present. Adrenal glands are grossly unremarkable. The spleen is enlarged measuring 14 cm CC. Liver is enlarged measuring approximately 20 cm CC. Cholecystectomy clips are present. The pancreas is grossly unremarkable. There is a small hypodensity in the lower pole of the right kidney probably a cyst. There is limited evaluation of the bowel without oral contrast. The small bowel loops are normal in caliber. There is no evidence of appendicitis. There is colonic diverticulosis without diverticulitis. There is no free intraperitoneal fluid or air. Metallic prostate implants are present. There is a tiny fat-containing left internal hernia. The bladder is grossly unremarkable. There is questionable thickening versus underdistention of the rectum. There is no bulky adenopathy. Atherosclerotic changes are present. The abdominal aorta is normal in caliber. Degenerative changes of the spine are seen. There are also mild degenerative changes of the bilateral hips. There is calcification posterior to the sacrum. Impression: Evaluation of the bowel limited without oral contrast. Cholecystectomy. Hepatosplenomegaly. Mild thickening versus underdistention of the distal esophagus. Esophagitis not completely excluded and further evaluation recommended as indicated. Thickening versus underdistention of the distal rectum. Correlation with physical examination recommended. Further evaluation recommended as indicated. Colonic diverticulosis. Atherosclerotic changes. Metallic prostate implant. Two tiny 2 mm nodules in the partially visualized right lower lobe. Findings are nonspecific and followup recommended as indicated. The CT scanner at [facility] is accredited by the [employer] and the scans are performed using protocols designed to limit radiation exposure to as low as reasonably achievable to attain images of sufficient resolution adequate for diagnostic evaluation.
== END 2017-06-27 17:47 | disposition home or self-care (01) ==
LOC: EMR 14:00
DX: K59.00 Constipation, unspecified (principal); K64.8 Other hemorrhoids; I10 Essential (primary) hypertension; E11.9 Type 2 diabetes mellitus without complications; I50.9 Heart failure, unspecified; R16.2 Hepatomegaly with splenomegaly, not elsewhere classified; Z90.49 Acquired absence of other specified parts of digestive tract; K57.30 Diverticulosis of large intestine without perforation or abscess without bleeding; Z85.46 Personal history of malignant neoplasm of prostate; Z95.0 Presence of cardiac pacemaker
CPT/HCPCS: 36415; 74177; 80053; 81003; 83690; 85025; 85610; 85730; 96372; 99284; J1815; Q9967

== ENCOUNTER 2017-08-25 15:49 | Emergency (ER) | payer MEDICARE, OTHER ==
[~2017-08-25] VITALS: Ht 175.3 cm; Wt 95.3 kg
[~2017-08-25 15:49] MED LIST changes: +MIRALAX119 GM PO
[2017-08-25 15:54] VITALS: BP 129/79
[2017-08-25 17:23] VITALS: BP 129/79
--- NOTE | 2017-08-25 21:40 | Emergency Room Report ---
History of Present Illness General Chief Complaint: Lower Back Pain or Injury Source: Patient Present Illness HPI This patient left prior to being fully evaluated or having physical examination performed by ED provider. Disposition is unknown. Allergies: Coded Allergies: No Known Allergies (Unverified , 05/29/17) Nursing Documentation-PMH Past Medical History: No History, Except For Hx Cardiac Problems: Yes - CHF, HIV+ Hx Hypertension: Yes - High Cholesterol Hx Pacemaker: Yes - Left chest, May [address] [facility] Hx Diabetes: Yes Hx Cancer: No Hx Gastrointestinal Problems: Yes Hx Neurological Problems: No Physical Exam Vital Signs Date Time Temp Pulse Resp B/P (MAP) Pulse Ox O2 Delivery O2 Flow Rate FiO2 08/25/17 15:54 97.5 62 18 129/79 97 Room Air Medical Decision Making PA Attestation Dr. Georges is my supervising Physician whom patient management has been discussed with. Diagnostic Impression: Primary Impression: unknown ER Course This patient left prior to being fully evaluated or having physical examination performed by ED provider. Disposition is unknown. Last Vital Signs Date Time Temp Pulse Resp B/P (MAP) Pulse Ox O2 Delivery O2 Flow Rate FiO2 08/25/17 17:23 62 18 129/79 97 Room Air 08/25/17 15:54 97.5 Disposition: LEFT W/OUT BEING SEEN Condition: Unknown Referrals: TIA BIANCHI (PCP) Milka Cassidy Aug 25, 2017 21:40
== END 2017-08-25 17:35 | disposition left against medical advice (07) ==
LOC: EMR 17:32
DX: M54.5 Low back pain (principal); Z53.21 Procedure and treatment not carried out due to patient leaving prior to being seen by health care provider
CPT/HCPCS: 99281

== ENCOUNTER 2017-09-22 15:39 | Outpatient (CLI) | payer MEDICARE, OTHER ==
--- NOTE | 2017-09-23 09:42 | Diagnostic Imaging Report ---
Indication: Bilateral hip pain Technique: No contrast, per protocol. Spiral acquisitions obtained through the pelvis and left hip Multiplanar reconstructions were generated. Total dose length product 454 mGycm. CTDIvol(s) 14 mGy. Radiation dose was minimized using automated exposure control Comparison: 05/09/2016 Findings: Again demonstrated are subchondral cystic changes of the acetabulum. This appears similar to the prior exam. Subchondral cysts are also seen in the femoral neck small sclerotic opacities are seen within the femoral head, unchanged from previously. Curvilinear subchondral opacities are also demonstrated, likewise unchanged.. The joint spaces are preserved. Degenerative changes of the left sacroiliac joint are also noted. No evidence of acute fracture. No dislocations. Again demonstrated are implants within the prostate, presumably radiation seeds. Incidentally noted is colonic diverticulosis. There is some infiltration of the perineal fat bilaterally. This is similar to the previous study. Small fat-containing inguinal hernia is noted. Impression: Stable subchondral cystic changes of the acetabulum and femur, probably on the basis of degenerative changes. Subchondral sclerotic changes of the left femoral head. Previously thought to represent possible sequela of avascular necrosis. However, lack of interim progression makes it more likely that this just represents degenerative change. Stable infiltration of the bilateral perineal fat, nonspecific, presumably chronic as it is unchanged from the prior exam Subchondral sclerotic foci, stable, likely small bone islands Other findings as noted, including prostatic seed implants, colonic diverticulosis, small fat-containing hernia. The CT scanner at [facility] is accredited by the [employer] and the scans are performed using protocols designed to limit radiation exposure to as low as reasonably achievable to attain images of sufficient resolution adequate for diagnostic evaluation.
--- NOTE | 2017-09-23 10:24 | Diagnostic Imaging Report ---
Is Indication: PAIN Technique: No IV contrast, per protocol Spiral acquisitions obtained through the right hip Multiplanar reconstructions were generated. Total dose length product 454 mGycm. CTDIvol(s) 14 mGy. Radiation dose was minimized using automated exposure control Comparison: 05/09/2016 Findings: Subchondral cystic changes of the anterior right femoral head neck junction again demonstrated. Subchondral cystic changes of the edge of the acetabulum have progressed somewhat since the prior exam. Subchondral serpiginous sclerotic foci of the superior femoral head appear essentially unchanged from the previous study. The joint space is largely preserved. No evidence of acute fracture. No dislocations. Degenerative changes of the sacroiliac joints are again demonstrated. There is also evidence of lumbosacral facet degeneration. There is unusual collapse of the anterior superior corner of the L5 vertebral body. This is also evident in retrospect on prior CT abdomen pelvis dated 06/27/2017. Unusual areas of heterotopic ossification and are seen involving the posterior sacrum centrally. These are also seen on the prior images including the prior 2015 exam. Some small calcific densities are seen in the subcutaneous fat adjacent to this. This finding is unchanged. Again noted are implant seeds within the prostate. Again demonstrated is colonic diverticulosis. Impression: No acute bony trauma Subchondral cysts and sclerosis of the right hip joint, as described. The subchondral cysts are slightly progressive on the acetabular side of the joint but there is otherwise little significant interim change since previous exam of 05/09/2016 Serpiginous subchondral sclerosis of the femoral head appears similar to the previous exam. Previously thought likely represent changes of avascular necrosis. However, lack of interval change raise the possibility that this is merely due to degenerative change. Correlation with clinical findings is recommended. Further evaluation with MRI may be useful as clinically indicated Unusual appearance to the L5 vertebral body, may represent a chronic anterior L5 compression injury. Noted is is unchanged since prior abdomen pelvis CT of 06/27/2017 Degenerative lumbosacral facet disease and sacroiliac joint degeneration Other findings as noted, including stable retro-sacral heterotopic ossification, prostatic implant seeds, colonic diverticulosis The CT scanner at [facility] is accredited by the [employer] and the scans are performed using protocols designed to limit radiation exposure to as low as reasonably achievable to attain images of sufficient resolution adequate for diagnostic evaluation.
== END 2017-09-22 17:39 | disposition home or self-care (01) ==
LOC: CAT 15:39
DX: M25.552 Pain in left hip (principal); M25.551 Pain in right hip; K57.30 Diverticulosis of large intestine without perforation or abscess without bleeding; K40.90 Unilateral inguinal hernia, without obstruction or gangrene, not specified as recurrent

== ENCOUNTER 2017-11-26 16:27 | Emergency (ER) | payer MEDICARE, OTHER ==
[~2017-11-26] VITALS: Ht 175.3 cm; Wt 97.5 kg
[2017-11-26 18:12] VITALS: BP 148/85
--- NOTE | 2017-11-26 22:15 | Emergency Room Report ---
History of Present Illness General Chief Complaint: Pain Source: Patient, Medical Record Present Illness HPI 62-year-old male presents ER complaining of low back pain Patient was previously seen in ER 2 days ago and treated with NSAID, [place], muscle relaxants. Patient states he was diagnosed with sciatica at that time. Patient states he has not followed up with his PCP. Patient states he would like to know why pain has not resolved at this time. Patient states taking medication prior to arrival at ER with mild relief of symptoms. Patient reports relief of pain symptoms with laying down. Patient denies fever, chest pain, SOB, weakness of extremities. Allergies: Coded Allergies: No Known Allergies (Unverified , 05/29/17) Patient History Past Medical History: see triage record Reviewed Nursing Documentation: PMH: Agreed, PSxH: Agreed Nursing Documentation-PMH Past Medical History: No History, Except For Hx Cardiac Problems: Yes - CHF, HIV+ Hx Hypertension: Yes - High Cholesterol Hx Pacemaker: Yes - Left chest, [facility] [address] [facility] Hx Asthma: Yes Hx COPD: Yes Hx Diabetes: Yes Hx Cancer: No Hx Gastrointestinal Problems: Yes Hx Dialysis: No History Of Psychiatric Problem: No Hx Neurological Problems: No Hx Cerebrovascular Accident: No Hx Seizures: No Review of Systems All Other Systems: negative except mentioned in HPI Physical Exam Vital Signs Date Time Temp Pulse Resp B/P (MAP) Pulse Ox O2 Delivery O2 Flow Rate FiO2 11/26/17 16:52 98.2 73 16 119/72 96 Room Air Sp02 EP Interpretation: reviewed, normal General Appearance: no apparent distress, alert, GCS 15, non-toxic Head: normocephalic, atraumatic Eyes: bilateral eye normal inspection, bilateral eye PERRL, bilateral eye EOMI ENT: hearing grossly normal, normal pharynx, no angioedema, normal voice Respiratory: chest non-tender, lungs clear, normal breath sounds, speaking full sentences Cardiovascular #1: regular rate, rhythm, no edema, no gallop, no murmur Cardiovascular #2: 2+ dorsalis pedis (R), 2+ dorsalis pedis (L) Musculoskeletal: back normal, digits/nails normal, gait/station normal, non- tender, no calf tenderness, decreased range of motion - secondary to pain Skin: normal color, no rash, warm/dry, well hydrated Medical Decision Making PA Attestation Dr. Orourke is my supervising Physician whom patient management has been discussed with. Diagnostic Impression: Primary Impression: Sciatica Additional Impression: Back pain ER Course Pt. presents to the ED c/o back pain. Ddx considered but are not limited to fracture, sprain, strain, contusion, sciatica. Vital signs: are WNL, pt. is afebrile ORDERS: none required at this time, diagnosis is clinical. ED INTERVENTIONS: None required at this time. DISCHARGE: At this time pt. is stable for d/c to home. Will provide printed patient care instructions, and any necessary prescriptions. Patient instructed to follow with primary care provider in 3 - 5 days to discuss treatment plan and request further orthopedic follow-up as needed. Patient states he has an appointment with his PCP scheduled at this time. Care plan and follow up instructions have been discussed with the patient prior to discharge. Take medications as directed. Patient questions asked and answered. Patient understands that sciatica is a chronic problem and pain symptoms may not be immediately resolved with pain medication; requires further follow-up with PCP. ER precautions given, patient instructed to return to ER immediately for any new or worsening of symptoms. Last Vital Signs Date Time Temp Pulse Resp B/P (MAP) Pulse Ox O2 Delivery O2 Flow Rate FiO2 11/26/17 18:12 64 17 148/85 98 Room Air 11/26/17 16:52 98.2 Status: unchanged Disposition: HOME, SELF-CARE Condition: Stable Referrals: TIA BIANCHI (PCP) Patient Instructions: Sciatica, [id number] Additional Instructions: Followup with primary care provider in 3 -5 days. Take medications as directed. Patient questions asked and answered. ER precautions given, patient instructed to return to ER immediately for any new or worsening of symptoms. Tray Ro Nov 26, 2017 22:15
== END 2017-11-26 18:20 | disposition home or self-care (01) ==
LOC: EMR 18:13
DX: M54.40 Lumbago with sciatica, unspecified side (principal); I11.0 Hypertensive heart disease with heart failure; I50.9 Heart failure, unspecified; J44.9 Chronic obstructive pulmonary disease, unspecified; E11.9 Type 2 diabetes mellitus without complications; Z95.0 Presence of cardiac pacemaker
CPT/HCPCS: 99282

== ENCOUNTER 2017-12-15 09:27 | Outpatient (CLI) | payer MEDICARE, OTHER ==
--- NOTE | 2017-12-15 13:00 | Diagnostic Imaging Report ---
Indications: Back pain and lumbosacral radiculopathy Technique: Spiral acquisitions obtained through the lumbar spine. Multiplanar reconstructions were generated. No IV contrast utilized. Total dose length product 544.36 mGycm. CTDIvol(s) 17.34 mGy. Dose reduction achieved using automated exposure control Comparison: none Findings: Bony alignment is normal. There is depression of the anterior superior endplate of L5 focally which appears chronic. Vertebral body heights are otherwise preserved. No acute fractures. No dislocations. The disc spaces are preserved. There are degenerative changes of the bilateral sacroiliac joints, with narrowing, proliferative change, and irregularity of the joint surfaces. At L1-2, a detached osteophyte presumably from the L2 facet occupies much of the right neural foramen. No significant disc bulge or protrusion. The left neural foramen is preserved. There is bilateral facet arthrosis. At L2-3, there is mild narrowing the bilateral neural foramina due to bilateral facet arthrosis. No significant disc bulge or protrusion or spinal stenosis. At L3-4, there is circumferential annular bulge but no significant spinal stenosis. The neural foramina are preserved. There is bilateral facet arthrosis. At L4-5, there is circumferential annular bulge. There is bilateral ligamentum flavum hypertrophy and ossification. None of these appear to significantly narrow the spinal canal. There is extensive facet arthrosis. There is also [id number] appearance of the spinous processes at this level. At L5-S1, no significant disc bulge or protrusion or spinal stenosis or neural foraminal stenosis. There is bilateral facet arthrosis. The included extraspinal soft tissues are remarkable for the presence of colonic diverticula. Impression: Degenerative changes, as detailed on a level by level basis above. Note likely significant stenosis of the right L1-2 neural foramen by what is presumably a detached osteophyte No acute bony trauma Incidental finding of colonic diverticulosis The CT scanner at [facility] is accredited by the [employer] and the scans are performed using protocols designed to limit radiation exposure to as low as reasonably achievable to attain images of sufficient resolution adequate for diagnostic evaluation.
== END 2017-12-15 11:27 | disposition home or self-care (01) ==
LOC: CAT 09:27
DX: M54.9 Dorsalgia, unspecified (principal); M54.17 Radiculopathy, lumbosacral region; K57.90 Diverticulosis of intestine, part unspecified, without perforation or abscess without bleeding
CPT/HCPCS: 72131

== ENCOUNTER 2017-12-29 07:06 | Emergency (ER) | payer MEDICARE, OTHER ==
[~2017-12-29] VITALS: Ht 175.3 cm; Wt 95.3 kg
[2017-12-29] MEDS ORDERED: AMOXIL250 MG ORAL (07:24)
[2017-12-29] MEDS ORDERED: LIDOCAINE700 M1 TP (07:44)
[2017-12-29] MEDS ORDERED: ROBAXIN-750750 MG PO (07:44)
[2017-12-29] MEDS ORDERED: oxyCODONE HCL/Acetaminophen 5/325mg ORAL ONE (07:45)
[2017-12-29 07:52] VITALS: BP 143/90
--- NOTE | 2017-12-29 08:15 | Emergency Room Report ---
History of Present Illness General Chief Complaint: Pain Source: Patient Present Illness HPI 62-year-old male, chronic back pain p/w back pain for one week. Pain is localized to right lower back, sharp in nature, radiating down leg. Movement worsens pain. There are no alleviating factors. Patient took pain medications with minimal relief. Patient has experienced this similar pain in the past. Denies trauma. Denies lower extremity weakness/numbness, no bowel/bladder retention or incontinence, saddle anesthesia. Denies fever, chills, abdominal pain, n/v, dysuria/hematuria. No history of IVDA Patient has a pacemaker, associated that he is unable to get an MRI, however states that he had a CT done which showed compression fractures of L2-L3 Allergies: Coded Allergies: No Known Allergies (Unverified , 05/29/17) Patient History Past Medical History: see triage record Past Surgical History: none Pertinent Family History: none Reviewed Nursing Documentation: PMH: Agreed, PSxH: Agreed Nursing Documentation-PMH Past Medical History: No History, Except For Hx Cardiac Problems: Yes - CHF, HIV+ Hx Hypertension: Yes - High Cholesterol Hx Pacemaker: Yes - Left chest, May 2016 @ [facility] Hx Asthma: Yes Hx COPD: Yes Hx Diabetes: Yes Hx Cancer: No Hx Gastrointestinal Problems: Yes - acid reflux Hx Dialysis: No Hx Neurological Problems: No Hx Cerebrovascular Accident: No Hx Seizures: No Review of Systems All Other Systems: negative except mentioned in HPI Physical Exam Vital Signs Date Time Temp Pulse Resp B/P (MAP) Pulse Ox O2 Delivery O2 Flow Rate FiO2 12/29/17 07:16 98.0 85 16 143/90 98 Room Air 98.1 Sp02 EP Interpretation: reviewed, normal General Appearance: alert, GCS 15, non-toxic, mild distress Head: normocephalic, atraumatic Eyes: bilateral eye normal inspection, bilateral eye PERRL, bilateral eye EOMI ENT: normal ENT inspection, normal pharynx, normal voice, moist mucus membranes Neck: normal inspection, full range of motion, supple Respiratory: normal inspection, lungs clear, normal breath sounds, no respiratory distress, no retraction, no wheezing, speaking full sentences, chest symmetrical Cardiovascular #1: normal inspection, regular rate, rhythm, no edema, normal capillary refill Cardiovascular #2: 2+ radial (R), 2+ radial (L) Gastrointestinal: normal inspection, non tender, soft, non-distended, no guarding Genitourinary: no CVA tenderness Musculoskeletal: other - Right lower back paraspinal tenderness palpation, no midline tenderness, full range of motion all extremities Neurologic: normal inspection, alert, oriented x3, responsive, motor strength/ tone normal, sensory intact, normal gait, speech normal Psychiatric: normal inspection, judgement/insight normal, memory normal Skin: normal inspection, normal color, no rash, warm/dry, well hydrated, normal turgor Medical Decision Making Diagnostic Impression: Primary Impression: Chronic back pain ER Course 62-year-old male with chronic back pain DDX: Likely musculoskeletal back pain vs. muscular strain vs. sciatica Serious diagnoses such as cord compression, epidural abscess, cauda equina is unlikely in this patient given the clinical scenario and abscess of neurological symptoms or findings. Patient appears nontoxic. Plan: Pain control ER course: Patient has remained nontoxic appearing and ambulatory in the ED. Pain improved w/ medications Disposition: Patient will be discharged to home with prescription of lidocaine patch and Robaxin Patient cautioned of the effects of robaxin including possible impairment of physical or mental abilities. Patient was instructed to refrain from operating machinery or driving. Patient is also cautioned on the GI effects of motrin and to take sparingly. Patient verbalized understanding. Strict precautions discussed with patient on when to emergently return to the ED which includes severe/worsening back pain, leg weakness/numbness, urinary retention/incontinence, fever or chills, which may indicate severe illness. Patient is to follow up with their PMD within 5 days. Patient agrees with plan. Please note that this Emergency Department Report was dictated using [employer] mechanic technology software, occasionally this can lead to erroneous entry secondary to interpretation by the dictation equipment. Last Vital Signs Date Time Temp Pulse Resp B/P (MAP) Pulse Ox O2 Delivery O2 Flow Rate FiO2 12/29/17 07:52 208.4 16 143/90 98 Room Air 208.4 12/29/17 07:16 85 Disposition: HOME, SELF-CARE Condition: Stable Scripts Methocarbamol* (ROBAXIN-750*) 750 Mg Tablet 750 MG PO QID, #28 TAB 0 Refills Prov: Retino,Keyonnairose M.D. 12/29/17 Lidocaine (Lidocaine) 1 Each Adh..patch 700 MG TP EVERY 12 HOURS, #5 PATCH 0 Refills Prov: Retino,Clairose M.D. 12/29/17 Referrals: NON PHYSICIAN (PCP) Patient Instructions: Back Pain, Adult, [id number] Additional Instructions: PLEASE FOLLOW UP WITH YOUR DOCTOR IN 1 WEEK YOU MAY NEED PHYSICAL THERAPY PLEASE SCHEDULE AN APPOINTMENT WITH A ORTHOPEDIC SPINE DOCTOR Sheldon Garza M.D. Dec 29, 2017 08:15
== END 2017-12-29 07:53 | disposition home or self-care (01) ==
LOC: EMR 07:35
DX: M54.5 Low back pain (principal); G89.29 Other chronic pain; I11.0 Hypertensive heart disease with heart failure; I50.9 Heart failure, unspecified; J44.9 Chronic obstructive pulmonary disease, unspecified; E11.9 Type 2 diabetes mellitus without complications
CPT/HCPCS: 99283

== ENCOUNTER 2018-08-13 19:35 | Emergency (ER) | payer MEDICARE, OTHER ==
[~2018-08-13] VITALS: Ht 175.3 cm; Wt 95.3 kg
[~2018-08-13 19:35] MED LIST changes: +AMOXIL250 MG ORAL; +LIDOCAINE700 M1 TP; +ROBAXIN-750750 MG PO
--- NOTE | 2018-08-13 20:25 | Emergency Room Report ---
History of Present Illness General Chief Complaint: Wound Recheck/Suture Removal Source: Patient, Medical Record Present Illness HPI 63-year-old male presents to the emergency department complaining of 6/10 in severity tenderness, swelling and some scant discharge from previously sutured incision area where patient had biopsy performed one week ago on the right hand. Patient states that he was not placed on antibiotics and he feels that has become infected. Patient denies fevers or chills he reports he is able to move the extremities that are in the nearby area without pain. Patient reports tenderness primarily just to the side of where the incision was made. denies paresthesias, joint pain, or stiffness in joints. Allergies: Coded Allergies: No Known Allergies (Unverified , 08/13/18) Patient History Past Medical History: see triage record Past Surgical History: none Pertinent Family History: none Reviewed Nursing Documentation: PMH: Agreed; PSxH: Agreed Nursing Documentation-PMH Past Medical History: No History, Except For Hx Cardiac Problems: Yes - CHF, HIV+ Hx Hypertension: Yes - High Cholesterol Hx Pacemaker: Yes - Left chest, May 2016 @ [facility] Hx Asthma: Yes Hx COPD: Yes Hx Diabetes: Yes - DM 2 Hx Cancer: No Hx Gastrointestinal Problems: Yes - acid reflux Hx Dialysis: No Hx Neurological Problems: No Hx Cerebrovascular Accident: No Hx Seizures: No Review of Systems All Other Systems: negative except mentioned in HPI Physical Exam Vital Signs Date Time Temp Pulse Resp B/P (MAP) Pulse Ox O2 Delivery O2 Flow Rate FiO2 08/13/18 19:40 99.0 60 16 101/66 96 Room Air 99.0 Sp02 EP Interpretation: reviewed, normal General Appearance: no apparent distress, alert, GCS 15, non-toxic Head: normocephalic, atraumatic ENT: hearing grossly normal, normal voice Neck: full range of motion Respiratory: lungs clear, normal breath sounds, speaking full sentences Cardiovascular #1: regular rate, rhythm Rectal: deferred Genitourinary: normal inspection Musculoskeletal: back normal, gait/station normal, normal range of motion, tender - TTP over distal volar right hand at base of index metacarpal where incision was made. Neurologic: alert, oriented x3, responsive, motor strength/tone normal, sensory intact, speech normal, grossly normal Psychiatric: judgement/insight normal Skin: normal color, no rash, warm/dry, well hydrated, other - mild wound infection, not much erythema noted, scant purulent d/c between two sutures. moderate tenderness to palpation, right index and middle finger-FROM, some swelling noted, NVI. Medical Decision Making PA Attestation Dr. abdi is my supervising Physician whom patient management has been discussed with. Diagnostic Impression: Primary Impression: Wound infection following procedure ER Course 63-year-old male presents to the emergency department complaining of 6/10 in severity tenderness, swelling and some scant discharge from previously sutured incision area where patient had biopsy performed one week ago on the right hand. Patient states that he was not placed on antibiotics and he feels that has become infected. Patient denies fevers or chills he reports he is able to move the extremities that are in the nearby area without pain. Patient reports tenderness primarily just to the side of where the incision was made. denies paresthesias, joint pain, or stiffness in joints. Ddx considered but are not limited to dehiscence, cellulitis, septic joint, tendon synovitis, just to name a few. Vital signs: are WNL, pt. is afebrile H&PE are most consistent with mild wound infection, not much erythema noted, scant purulent d/c between two sutures. moderate tenderness to palpation, right index and middle finger-FROM, some swelling noted, NVI. ORDERS: none required at this time, the diagnosis is clinical ED INTERVENTIONS: -D/w pt. recommend removal of sutures. pt. states they are not supposed to be removed for another 5 days, and has appt with his doctor for follow-up. pt. declines suture removal and requests antibiotics. DISCHARGE: At this time pt. is stable for d/c to home. Will provide printed patient care instructions, and any necessary prescriptions. Care plan and follow up instructions have been discussed with the patient prior to discharge. Last Vital Signs Date Time Temp Pulse Resp B/P (MAP) Pulse Ox O2 Delivery O2 Flow Rate FiO2 08/13/18 19:40 99.0 60 16 101/66 96 Room Air 99.0 Disposition: HOME, SELF-CARE Condition: Stable Scripts Acetaminophen With Codeine (T#3) (TYLENOL #3 TAB*) Y Tab 1 TAB ORAL Q8HR PRN for For Pain, #6 TAB Prov: Milka Cassidy 08/13/18 Clindamycin Hcl (CLINDAMYCIN HCL) 300 Mg Capsule 300 MG ORAL FOUR TIMES A DAY for 7 Days, #28 CAP Prov: Milka Cassidy 08/13/18 Patient Instructions: Wound Infection, [id number] Additional Instructions: Take medications as directed. Follow up with your surgeon or PCP within 3 days ( on Thursday), even if your symptoms have resolved. ~ Return sooner to ED if new symptoms occur, or current symptoms become worse. Do not drink alcohol, drive, or operate heavy machinery while taking Tylenol # 3 as this may cause drowsiness. - Please note that this Emergency Department Report was dictated using [employer] machine setter technology software, occasionally this can lead to erroneous entry secondary to interpretation by the dictation equipment. Milka Cassidy Aug 13, 2018 20:25
[2018-08-13] MEDS ORDERED: CLINDAMYCIN HC300 MG ORAL (20:27)
[2018-08-13] MEDS ORDERED: ACETAMINOPHEN-1 EAC1 ORAL (20:27)
[2018-08-13] MEDS ORDERED: Clindamycin 150mg cap ORAL ONE (20:30)
[2018-08-13 20:48] VITALS: BP 132/69
== END 2018-08-13 20:48 | disposition home or self-care (01) ==
LOC: EMR 19:56
DX: T81.41XD Infection following a procedure, superficial incisional surgical site, subsequent encounter (principal); I10 Essential (primary) hypertension; E11.9 Type 2 diabetes mellitus without complications; I50.9 Heart failure, unspecified; Z95.0 Presence of cardiac pacemaker
CPT/HCPCS: 99283

== ENCOUNTER 2018-10-18 01:11 | Emergency (ER) | payer MEDICARE, OTHER ==
[~2018-10-18] VITALS: Ht 175.3 cm; Wt 90.7 kg
[~2018-10-18 01:11] MED LIST changes: +ACETAMINOPHEN-1 EAC1 ORAL; +CLINDAMYCIN HC300 MG ORAL; +Morphine Sulfate 2mg/ml Inj ONE; +Morphine Sulfate 4mg/ml Inj (IV/IM USE ONLY) ONE; +Vancomycin 1gm inj IVPB ONE; +Zosyn 3.375gm inj ONE
[2018-10-18 01:20] VITALS: BP 112/65
--- NOTE | 2018-10-18 01:43 | Emergency Room Report ---
History of Present Illness General Chief Complaint: Pain Source: Patient Present Illness HPI Mr. Fraire is 63 yo male with hx of HIV, prostate CA and skin CA who presents with skin rash for one week. He is concerned for brown recluse spider bites on back and right forearm. He has generalized pain in joints. He requests prescription for pain medication. NO fever. +general malaise Allergies: Coded Allergies: No Known Allergies (Unverified , 08/13/18) Patient History Past Medical History: see triage record, old chart reviewed Past Surgical History: other - reviewed per EMR Social History: Denies: drug use Reviewed Nursing Documentation: PMH: Agreed; PSxH: Agreed Nursing Documentation-PMH Hx Cardiac Problems: Yes - pace maker Hx Hypertension: No Hx Pacemaker: Yes - L side Hx Asthma: No Hx COPD: No Hx Diabetes: No Hx Cancer: No Hx Gastrointestinal Problems: No Hx Dialysis: No History Of Psychiatric Problem: No Hx Neurological Problems: No Hx Cerebrovascular Accident: No Hx Seizures: No Review of Systems Constitutional: Reports: chills, malaise Respiratory: Denies: cough Cardiovascular: Denies: chest pain Gastrointestinal: Denies: abdominal pain Genitourinary: Denies: discharge Musculoskeletal: Denies: back pain Skin: Reports: rash All Other Systems: negative except mentioned in HPI Physical Exam Vital Signs Date Time Temp Pulse Resp B/P (MAP) Pulse Ox O2 Delivery O2 Flow Rate FiO2 10/18/18 01:14 65 16 112/65 98 Sp02 EP Interpretation: reviewed, normal General Appearance: no apparent distress, alert, GCS 15, non-toxic Head: normocephalic, atraumatic Eyes: bilateral eye normal inspection ENT: hearing grossly normal, normal pharynx, no angioedema, normal voice Neck: full range of motion, supple/symm/no masses Respiratory: chest non-tender, lungs clear, normal breath sounds, no rhonchi, no respiratory distress, no retraction, no accessory muscle use, speaking full sentences Cardiovascular #1: regular rate, rhythm, no edema, no gallop, no JVD, no murmur , no rub Gastrointestinal: normal bowel sounds, non tender, soft, no mass, no organomegaly, no peritonitis, no bruit, non-distended, no guarding, no rebound Musculoskeletal: back normal, gait/station normal, normal range of motion, non- tender, calf tenderness Neurologic: alert, oriented x3, responsive, motor strength/tone normal, sensory intact, speech normal Psychiatric: judgement/insight normal, memory normal, mood/affect normal, no suicidal/homicidal ideation Reflexes: 3+ bicep (R), 3+ bicep (L), 3+ tricep (R), 3+ tricep (L), 3+ knee (R) , 3+ knee (L) Skin: well hydrated, other - small papule right upper back, 1 cm healing ulcer right forearm Lymphatic: no adenopathy Medical Decision Making Diagnostic Impression: Primary Impression: Papule of skin Additional Impression: Skin ulcer ER Course Minor skin lesions without abscess or cellulitis, rx: triple antibiotic ointment Patient appears to have chronic pain. I have referred him to his PCP for ultimate management. Last Vital Signs Date Time Temp Pulse Resp B/P (MAP) Pulse Ox O2 Delivery O2 Flow Rate FiO2 10/18/18 01:14 65 16 112/65 98 Disposition: HOME, SELF-CARE Condition: Stable Lakisha Samuel MD Oct 18, 2018 01:43
[2018-10-18] MEDS ORDERED: NEOSPORIN OINT30 GM EXT (01:44)
[2018-10-18 02:01] VITALS: BP_SYST 112; BP_SYST 123; BP_DIAS 65; BP_DIAS 70
== END 2018-10-18 02:00 | disposition home or self-care (01) ==
LOC: EMR 01:33
DX: L98.499 Non-pressure chronic ulcer of skin of other sites with unspecified severity (principal); R23.8 Other skin changes; Z95.0 Presence of cardiac pacemaker; B20 Human immunodeficiency virus [HIV] disease; Z85.46 Personal history of malignant neoplasm of prostate; Z85.828 Personal history of other malignant neoplasm of skin
CPT/HCPCS: 99282; J2405